=== PATIENT | female | born 1955 | race Caucasian/White ===

== ENCOUNTER 2019-10-19 07:23 | Outpatient (CLI) | payer BC, SELFPAY ==
--- NOTE | 2019-10-19 | DI.RAD_ITS ---
EXAM: XR LUMBAR SPINE COMPLETE CLINICAL HISTORY: LOW BACK PAIN ACUTE M54.5. TECHNIQUE: 2D digital imaging was performed. COMPARISON: No exams were available for comparison FINDINGS: BONES: No fracture or destructive lesion. Vertebral bodies are unremarkable. Degenerative changes of the facets are seen at L4-5 and L5-S1. DISKS: Intervertebral disc spaces are maintained. ALIGNMENT: Lumbar spinal alignment is within normal limits. SOFT TISSUE: Atherosclerosis of the abdominal aorta. IMPRESSION: Mild degenerative changes in the lumbar spine. DATA REPOSITORY: RADIATION DOSE DELIVERED:
== END 2019-10-19 07:43 ==
PROVIDERS: PCP Family Medicine; Visit Provider Family Medicine
DX: M54.5 Low back pain (principal); M47.817 Spondylosis without myelopathy or radiculopathy, lumbosacral region
CPT/HCPCS: 72110

== ENCOUNTER 2020-03-23 17:56 | Outpatient (REF) | payer BC, SELFPAY | END 2020-03-23 18:16 | LOC: NCHCN 17:56 | PROVIDERS: PCP Family Medicine; Visit Provider Nurse Practitioner Family | DX: R10.2 Pelvic and perineal pain (principal) | CPT/HCPCS: 87086 ==

== ENCOUNTER 2020-03-29 19:39 | Outpatient (REF) | payer BC, SELFPAY ==
--- NOTE | 2020-03-29 11:30 | PAPFT_PTH ---
PATIENT: Lisa Diaz LOC: [facility] U#:[id number] AGE/SX: 64/F ROOM: RE03/29/[address]: Luana Gates : 1955 BED: DIS: 03/29/2020 SPEC #: [id number] RECD: 03/30/20 12:53 STATUS: TIANNA REQ #: [id number] SHELLI: 03/29/20 11:[address]: Luana Gates DEPT: [facility] Cytology RECD BY: Flory Lema ENTERED: 03/30/20 12:53 SP TYPE: PAPFT OTHR DR: Amy Nicholson Tissues: 1 - CX/ENDOCX FOR PAP SMEARS Procedures: PAP THIN PREP/UVM Screening HPV DNA PROBE Comments: [id number]
[2020-03-29 20:25] LABS: HCT 41.6 % (36.0-46.0); HGB 13.9 g/dL (11.2-15.7); MCH 29.4 pg (27.0-33.0); MCHC 33.4 % (32.0-36.0); MCV 88.1 fL (80-95); MPV 9.7 fL (8.0-11.0); Platelet Count 315 10^3/uL (130-400); RBC 4.72 10^6/uL (3.93-5.22); RDW 12.2 % (11.7-14.6); RDW-SD 39.4 fL; WBC 6.84 10^3/uL (4.4-10.8)
[2020-03-29 21:18] LABS: ALT 21 U/L (14-59); AST 15 U/L (15-37); Albumin 4.1 g/dL (3.4-5.0); Alkaline Phosphatase 122 U/L (46-116); Anion Gap 10.1 mmol/L (3-11); BUN 11 mg/dL (7-18); Bilirubin, Total 0.4 mg/dL (0.2-1.0); CO2 29.9 mmol/L (21.0-32.0); Calcium 9.3 mg/dL (8.5-10.1); Calculated LDL 128 mg/dL (<100); Chloride 104 mmol/L (98-107); Cholesterol 219 mg/dL (<200); Glucose 88 mg/dL (74-106); HDL Cholesterol 62 mg/dL (40-60); Lipase 177 U/L (73-393); Potassium 4.2 mmol/L (3.5-5.1); Sodium 144 mmol/L (136-145); Total Protein 7.5 g/dL (6.4-8.2); Triglyceride 148 mg/dL (<150)
== END 2020-03-29 19:59 ==
LOC: NCHCN 19:39
PROVIDERS: PCP Family Medicine
DX: R10.9 Unspecified abdominal pain (principal); Z00.00 Encounter for general adult medical examination without abnormal findings; Z12.4 Encounter for screening for malignant neoplasm of cervix
CPT/HCPCS: 80053; 80061; 83690; 85027; 88142; 87624

== ENCOUNTER 2020-05-30 01:17 | Outpatient (CLI) | payer BC, SELFPAY ==
--- NOTE | 2020-05-30 | DI.US_ITS ---
EXAM: US AAA SCREENING CLINICAL HISTORY: ATHEROSCLEROSIS,I70.90,SCREENING FOR AAA TECHNIQUE: Ultrasound performed using standard protocol. COMPARISON: No exams were available for comparison FINDINGS: Limited abdominal ultrasound was performed to evaluate abdominal aorta. There is no abdominal aortic aneurysm. Maximum aortic diameter in the proximal portion the abdominal aorta is about 22 millimete rs. Right and left common iliac arteries are normal in appearance with diameter of right and left common iliac artery about 12 millimeters. IMPRESSION: No evidence of abdominal aortic aneurysm. DATA REPOSITORY:
== END 2020-05-30 01:37 ==
PROVIDERS: PCP Family Medicine; Visit Provider Family Medicine
DX: Z13.6 Encounter for screening for cardiovascular disorders (principal); I70.90 Unspecified atherosclerosis
CPT/HCPCS: 76706

== ENCOUNTER 2020-06-26 10:10 | Outpatient (CLI) | payer BC, SELFPAY ==
[2020-06-28 00:52] LABS: Patient Race White; SARS-CoV-2 RNA Undetected (Undetected); SARS-CoV-2 Specimen Source Nasal
== END 2020-06-26 10:30 ==
PROVIDERS: PCP Family Medicine; Visit Provider Family Medicine
DX: Z20.828 Contact with and (suspected) exposure to other viral communicable diseases (principal)
CPT/HCPCS: U0003

== ENCOUNTER 2020-07-10 00:44 | Outpatient (CLI) | payer BC, SELFPAY ==
--- NOTE | 2020-07-10 | DI.MAMMO_ITS ---
EXAM: MG MAMMO SCREENING CLINICAL HISTORY: SCREENING,Z12.31. TECHNIQUE: Bilateral full field digital CC and MLO mammographic images were obtained with 3D tomosyn thesis and utilizing computer aided detection (CAD). COMPARISON: Prior mammograms dating back to 2012, the most recent being May 1016. FINDINGS: There are no CAD designations. There are no new dominant masses nor malignant appearing microcalcification groups. Small nodular den sity in the upper quadrant of the left breast is unchanged from prior studies. This probably benign lymph node. There is no new architectural distortion nor skin thickening-retraction. IMPRESSION: No radiographic evidence of malignancy. Stable benign findings. BI-RADS Category 1 - Negative Breast Density - Category B - Scattered areas of fibroglandular density Breast density Category C or D implies that the patient has dense breast tissue. Dense breast tissue can make it harder to find cancer on a mammogram. Dense breast tissue is also associated with an incr eased risk of breast cancer. This information about the result of the mammogram report was provided to the patient to raise their awareness. Use this report when you speak with the patient about their risks for breast cancer, which includes their family history. At that time, you may recommend additional screening tests (Ultrasoun d or MRI) as these tests may add significant information. A negative radiographic report should not delay biopsy if a dominant or clinically suspicious mass is present. Up to ten percent of cancers are not identified on mammography. A negative report may reinforce clinical impression. Adenosis and dense breasts may obscure an underlying neoplasm. False positive reports average 6 to 10%. Patient will receive a letter notifying them of these results.
== END 2020-07-10 01:04 ==
PROVIDERS: PCP Family Medicine; Visit Provider Family Medicine
DX: Z12.31 Encounter for screening mammogram for malignant neoplasm of breast (principal)
CPT/HCPCS: 77063; 77067

== ENCOUNTER → 2022-06-20 02:13 | Outpatient (CLI) | payer MEDICARE, SELFPAY ==
--- NOTE | 2022-06-20 07:00 | DI.MRI_ITS ---
Exam(s) MR IAC BRAIN WO/W EXAM: MR IAC BRAIN WO/W CLINICAL HISTORY: assymmetric hearing, tinnitus,VERTIGO,H93.12,H90.3,H93.299 TECHNIQUE: MR examination of the brain was performed according to the usual protocol with additiona l multiplanar high-resolution pre and post contrast imaging the posterior fossa. Whole brain axial T 1 weighted imaging was also obtained post contrast. COMPARISON: No exams were available for comparison FINDINGS: The ventricular system is normal in appearance. There is no mass lesion or enhancing lesion in the b rain. No significant intracranial signal abnormality seen. A solitary left paez radiata white matter foc us of high signal is noted on T2 weighted imaging, not unusual in this age group. Diffusion-weighted imaging shows no diffusion restriction to suggest cerebral infarction. Susceptibility weighted imaging shows no evidence of intracranial hemorrhage. The orbital and temporal bone structures appear intact. The pituitary appears intact. There is normal flow void in the [id number] vasculature. Imaging of the posterior fossa region shows no abnormality of the cerebellum or andrzej. The internal a uditory canals and inner and middle ear structures appear normal. There is no mass lesion or enhanci ng lesion. IMPRESSION: Negative brain MRI with attention to the posterior fossa structures as described above. No mass lesi on or enhancing lesion. RADIATION DOSE DELIVERED: Total DLP
[2022-06-20 14:12] LABS: CREATININE 0.9 mg/dL (0.55-1.02); Estimated GFR 70.95 (mL/min/1.73m2)
[2022-06-20] MEDS: Gadoterate meglumine 20 ML VIAL 12 ML IVP (14:19)
[2022-06-20] MEDS: Normal Saline Flush 10 ML SYR IVP (14:19)
== END ==
PROVIDERS: PCP Family Medicine; Visit Provider Otolaryngology
DX: H90.3 Sensorineural hearing loss, bilateral (principal); H93.12 Tinnitus, left ear
CPT/HCPCS: 70553; 82565

== ENCOUNTER 2022-09-02 08:57 | Inpatient (IN) | payer MEDICARE, MEDICAID, SELFPAY ==
[2022-09-02] VITALS (30 sets, daily range): BP systolic 117–154; BP diastolic 57–79; PULSE 55–90; RESP 11–20; TEMP 36.4–36.6; O2SAT 94–99
--- NOTE | 2022-09-02 09:00 | RT.EKG_ITS ---
APPROVED REPORT Exam: Resting ECG Reason for Exam: fainted Patient Location: E HR:64 bpm ECG Measurements Heart Rate 64 AXIS SD 168 P -16 QRSd 94 QRS -42 QT 391 T 32 QTc 404 Conclusion Sinus rhythm...normal P axis, V-rate 60- 99 Left ventricular hypertrophy...multiple voltage criteria
--- NOTE | 2022-09-02 09:15 | RT.EKG_ITS ---
APPROVED REPORT Exam: Resting ECG Reason for Exam: fainted Patient Location: E HR:69 bpm ECG Measurements Heart Rate 69 AXIS TX 174 P -12 QRSd 97 QRS -43 QT 396 T 33 QTc 426 Conclusion Sinus rhythm...normal P axis, V-rate 60- 99 Left ventricular hypertrophy...multiple voltage criteria
--- NOTE | 2022-09-02 09:36 | W.ED.GENAD ---
Discharge Plan Discharge Details Chief Complaint: [id number] Admit Date/Time: 09/02/22 11:54 Admit Provider: Carmen Leyva Attending Provider: Carmen Leyva Primary Care Provider: Amy Nicholson ED Provider: Flory Pickens Discharge Data Discharge Date/Time-TO BE ENTERED AT DEPARTURE: 09/02/22 12:58 Medical Decision Making This 66-year-old female presents with 2 episodes of syncope last evening Laceration noted to left eyebrow Secondary to recurrent syncope and head injury, CT head and cervical spine was ordered which was negative per radiology interpretation my review Labs are stable Vitals are stable and patient is not orthostatic Of note, she is COVID-19 positive, I suspect this may be a contributing factor She does endorse alcohol use, she drinks approximately 2 drinks daily on weekends per patient She is fully alert and oriented, she is ambulatory steady gait, however given age and recurrent syncope I think she would benefit from admission to the hospital to exclude obvious dysrhythmia She is agreeable to plan at this time Return precautions reviewed and patient expressed understanding Medical Records Medical records reviewed: Yes I reviewed the patient's medical records. Lab Data Lab results reviewed: Yes I reviewed the patient's lab results. HPI General Date/Time Provider Initiated Documentation: 09/02/22 09:03. HPI Narrative: This 66-year-old female presents with report of 2 episodes of loss of consciousness starting at 7:00 last evening. She states that she had a typical day with her grandkids and when she arrived home took a shower and had a glass of wine which is her regular routine and felt dizzy and nauseous, she states that She remembers is waking up on the ground with pain to the left side of her face. She states she was too weak to get up when she tried she felt like she might pass out again so she crawled to the kitchen to get a glass of water. She states she then felt like she might have an additional episode and recalls only waking up on the ground and knocking her glass of water over. She placed herself in bed as she felt too dizzy to drive for evaluation and this morning has felt nauseous and weak all day. She denies any chest pain or shortness of breath. She denies any palpitations. She has mild headache. She denies any neck pain. She denies prior history of syncopal events in the past. She denies any recent flights, surgeries, long drives. She denies any calf pain or swelling. She denies any neurological changes at this time. She denies biting her tongue or urinary incontinence. She has no known history of seizures per patient. She denies any new medications. She only takes supplements per patient Related Data Home Medications Medication Instructions Recorded Confirmed Holy Basil PO DAILY 04/11/20 05/28/22 tumeric PO DAILY 04/11/20 05/28/22 multivitamin 1 tab PO DAILY 05/17/21 09/02/22 milk thistle 150 mg capsule 150 mg PO BID 05/28/22 09/02/22 Allergies Allergy/AdvReac Type Severity Reaction Status Date / Time No Known Allergies Allergy Unverified 09/02/22 09:28 General Stated Complaint: [id number] GERA: 3 Review of Systems All systems reviewed & are unremarkable except as noted in HPI and below PFSH All Active Problems Closed head injury (Acute) Eyebrow laceration (Acute) Alcohol abuse (Chronic) Discharge planning issues (Acute) DVT prophylaxis (Acute) COVID-19 (Acute) Syncopal episodes (Chronic) Tinnitus of left ear (Acute) Asymmetrical sensorineural hearing loss (Acute) Impairment of speech discrimination (Acute) Tinnitus, left (Acute) Asymmetrical sensorineural hearing loss (Acute) History of tonsillectomy and adenoidectomy (Acute) Hemorrhoids, internal (Acute) Tinnitus (Acute) Hearing loss in left ear (Acute) Osteoporosis of lumbar spine (Acute) Allergic rhinitis (Acute) Menopause (Acute) Prolapse of urethra (Acute) GERD (gastroesophageal reflux disease) (Chronic) Acute low back pain (Acute) Abdominal pain (Acute) Atherosclerosis (Acute) Pelvic pain (Acute) onset 09/2019 after accident while tubing. Sx worsening since. Suprapubic pain with position changes. Complete uterine prolapse with prolapse of anterior vaginal wall (Chronic) Encounter for screening for other viral diseases (Acute) Medical History Encounter for preventive care H/O screening mammography Irritable bowel syndrome (IBS) Surgical History Biopsy of breast Colonoscopy - IV Sedation Endoscopy (01/07/95) EGD H/O lumpectomy age 11, benign Rectocele, Paravaginal repair 1994 Family History Mother Heart disease Hypertension Stroke Father Personal history of malignant neoplasm neck cancer Paternal Uncle Stomach cancer Social History (Updated 09/02/22 @ 21:38 by Carmen Leyva MD) Smoking/Tobacco Use Status: Never Smoking risk assessment performed?: Yes Alcohol Intake: current Alcohol Intake frequency: 0-2 drinks per day Drug use: Socially Substance use type: marijuana Household members: none Number of Children: 1 number of grandchildren: 3 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 Pets and animals: No Sexually active: No What is your relationship status?: Panel score (0-1 are the most socially isolated patients): 0 Ramya/Yarsani: Quaker Additional Social history: Son-Jarod Sj. 04/2020, Grandchildren 03/09/2.5yo Female Reproductive History Menstrual Menopause type: natural Exam Const General: cooperative, comfortable and no acute distress Orientation: alert and oriented x3 HENMT Head: normal to inspection Head images: 1. laceration noted Mouth: oral mucosae normal Neck Other: No midline tenderness Resp Effort & Inspection: normal respiratory effort Auscultation: clear to auscultation bilaterally Cardio Rate: regular rate Rhythm: regular rhythm GI Inspection: normal to inspection Skin General skin exam: no rashes or lesions noted Neuro General: patient alert and patient oriented x3 Cranial Nerves: CN's II-XI intact bilaterally Cognition: normal cognition Speech: speech normal Extrem General: normal to inspection Course Vital Signs Vital signs: Vital Signs Temperature 36.6 C 09/02/22 09:04 Pulse 78 09/02/22 09:04 Respiratory Rate 18 09/02/22 09:04 Blood Pressure 133/76 09/02/22 09:04 Pulse Oximetry 98 09/02/22 09:04 Temperature 36.6 C 09/02/22 09:04 Temperature Source Temporal Artery Scan 09/02/22 09:04 Pulse 78 09/02/22 09:04 Respiratory Rate 18 09/02/22 09:14 Respiratory Effort Non-Labored 09/02/22 09:24 Respiratory Depth Normal 09/02/22 09:14 Respiratory Pattern Normal 09/02/22 09:14 Blood Pressure 133/76 09/02/22 09:04 Blood Pressure Position Sitting 09/02/22 09:04 Pulse Oximetry 98 09/02/22 09:04 Oxygen Delivery Method Room Air 09/02/22 09:04 Oxygen Flow Rate 0 09/02/22 09:04 PAWSS Have you Been Recently Intoxicated or Drunk Within the Last 30 days?: No Have you Ever Experienced Previous Episodes of Alcohol Withdrawal?: No Have you ever Experienced Withdrawal Seizures?: No Have you ever Experienced Delirium Tremens(DT)s?: No Have you ever undergone Alcohol Rehabilitation Treatment (i.e, inpt ot outpatient treatment programs)?: No Have you ever Experienced Blackouts?: No Have you ever Combined Alcohol with other Downers within the last 90 days?: No Have you ever Combined Alcohol with any other Substance of Abuse during the last 90 days?: No Result: 0
[2022-09-02 09:38] LABS: Abs Immature Grans 0.01 10^3/uL (0.0-0.06); Absolute Basophil Count 0.04 10^3/uL (0.0-0.2); Absolute Eosinophil Count 0.11 10^3/uL (0.0-0.7); Absolute Lymphocyte Count 1.94 10^3/uL (1.2-3.4); Absolute Monocyte Count 0.62 10^3/uL (0.1-0.8); Basophils % 0.5; Eosinophils % 1.4; HCT 38.9 % (36.0-46.0); HGB 13.3 g/dL (11.2-15.7); Immature Grans % 0.1; Lymphocytes % 23.9; MCH 29.1 pg (27.0-33.0); MCHC 34.2 % (32.0-36.0); MCV 85 fL (80-95); Monocytes % 7.6; Neutrophils % 66.5; Platelet Count 266 10^3/uL (130-400); RBC 4.57 10^6/uL (3.93-5.22); RDW 12.2 % (11.7-14.6); RDW-SD 37.7 fL; WBC 8.12 10^3/uL (4.4-10.8)
[2022-09-02] MEDS: Lactated Ringers 1,000 ML 1000 ML IV (09:52)
[2022-09-02 09:59] LABS: Bilirubin Negative (Negative); Blood Negative (Negative); Clarity Clear (Clear); Glucose Negative (Negative); Ketones Negative (Negative); Leukocyte Esterase Negative (Negative); Nitrite Negative (Negative); Specific Gravity 1.015 (1.005-1.025); Urobilinogen 0.2 EU/dL (Up TO 0.2)
[2022-09-02 10:03] LABS: ALT 22 U/L (14-59); AST 20 U/L (15-37); Alkaline Phosphatase 113 U/L (46-116); Anion Gap 6.6 mmol/L (3-11); BUN 15 mg/dL (7-18); Bilirubin, Total 0.5 mg/dL (0.2-1.0); CO2 30.4 mmol/L (21.0-32.0); CREATININE 0.8 mg/dL (0.55-1.02); Calcium 9.6 mg/dL (8.5-10.1); Chloride 105 mmol/L (98-107); Estimated GFR 81.72 (mL/min/1.73m2); Glucose 93 mg/dL (74-106); Magnesium 1.9 mg/dL (1.8-2.4); Potassium 3.7 mmol/L (3.5-5.1); Sodium 142 mmol/L (136-145); TSH (W/Ref FT4) 0.82 uIU/mL (0.36-3.74); Total Protein 7.2 g/dL (6.4-8.2); Troponin I < 50 ng/L (<or=60)
--- NOTE | 2022-09-02 10:08 | DI.CT_ITS ---
Exam(s) CT HEAD FACIAL WO EXAM: CT HEAD FACIAL WO CLINICAL HISTORY: syncope, HI, left orbital laceration. TECHNIQUE: Imaging Protocol: Axial computed tomography images with coronal and sagittal reformatted images were created and reviewed COMPARISON: CT HEAD WITHOUT CONTRAST from 06/12/2013 FINDINGS: CT Head: Ventricles and Extra axial spaces: Normal in size and morphology for the patient's age. Hemorrhage: None. Cerebral parenchyma: No evidence of an acute territorial infarct. Midline shift: None. Brainstem/Cerebellum: Normal. Calvarium: Normal. Visualized Paranasal sinuses/Mastoids: Clear. Soft Tissues: Unremarkable. CT Face: Facial Bones: No definite fracture is noted in facial bones. Sinuses and Mastoids: Unremarkable. Globes, extraocular muscles, optic nerves and retrobulbar fat: Normal. Upper aerodigestive tract: Normal. Mandible and bilateral temporomandibular joints: Normal. Soft tissues: Normal. IMPRESSION: 1. No acute intracranial process. 2. No acute facial fracture. 3. Findings were discussed with Flory Pickens at 10:34 a.m. on 06/02/2023. RADIATION DOSE DELIVERED: 1,211.19mGy.cm Total DLP DATA REPOSITORY: All CT scans at this facility are submitted to the National Radiology Data Registry (NRDR) Dose Index Registry (DIR) with the [employer] (A[employer]). RADIATION OPTIMIZATION: All CT scans at this facility use at least one of these dose optimization te chniques: automated exposure control; mA and/or kV adjustment per patient size (includes targeted exa ms where dose is matched to clinical indication); or iterative reconstruction.
[2022-09-02 10:54] LABS: Source Nasal/Nares
[2022-09-02 11:25] LABS: COVID-19 PCR POSITIVE (Negative)
--- NOTE | 2022-09-02 11:54 | W.PM.HP.N ---
Date of service: 09/02/22 Time of Service: 11:55 Assessment and Plan Assessment and plan (1) Syncopal episodes: Status: Chronic Assessment and plan: In setting of COVID-19 and alcohol abuse. Monitor on tele, obtain an echocardiogram. Not orthostatic, but I do still suspect a degree of autonomic dysfunction. Ambulate with assist only. (2) COVID-19: Status: Acute Assessment and plan: Possibly resulting in autonomic dysfunction. Will treat with remdesivir, vitamin c, d, zinc. Melatonin. Suspect nausea is due to COVID-19 as well - antiemetics, H2 brittany. Encourage IS/acapella. (3) Alcohol abuse: Status: Chronic Assessment and plan: MOnitor on CIWA with prn benzodiazepines and vitamins. Thiamine IV now. (4) Eyebrow laceration: Status: Acute Assessment and plan: sutured in ED. Anticipate will need to be removed in 5 days. (5) Closed head injury: Status: Acute Assessment and plan: Monitor for signs of encephalopathy/post-concussive syndrome (6) GERD (gastroesophageal reflux disease): Status: Chronic Assessment and plan: Start pepcid (7) DVT prophylaxis: Status: Acute Assessment and plan: Therapeutic lovenox (Dx of COVID-19) (8) Discharge planning issues: Status: Acute Assessment and plan: Full code Admit to medical surgical status History of Present Illness History of Present Illness Chief Complaint: recurrent sycnopal episodes Narrative: Ms Diaz is a 66 year female with PMHx of atherosclerosis (not otherwise specified) and GERD, as well as EtOH use only on weekends, who presented to [facility] ED today after two syncopal episodes yesterday. The patient was having her typical evening routine, per the ED provider, when she felt dizzy and nauseated and thought she might vomit, making her way to the bathroom, when the next thing she remembered was waking up on the floor with broken glasses, bleeding from her eyebrow. It is not known how long she was down, but when she came to it, she felt weak and was unable to get up, so she crawled to the sink in the kitchen, tried to get up there and, again, lost consciousness. When she came to it, she did not want to go for an evaluation to the ER, and she was able to get herself onto her couch. This morning, she still felt lightheaded and nauseated and did come to the ED. She was worried she had had a concussion. Here, her workup revealed that she was positive for COVID-19. She was not orthostatic. She had negative troponins, non-ischemic appearing EKGs x 2, and a CTA which was negative for a PE. The patient admits to drinking 7 oz or a half of a bottle of wine per day on weekends only, and she did have a glass of wine yesterday prior to this happening. She denied fevers, chills, endorsed a scratchy throat, denied palpitations, chest pain, endorsed chest tightness throughout her chest that was just starting, denies cough, denied diarrhea, denied abdominal pain. Her L eyebrow was sutured. Hospitalist admission was requested. Review of Systems All systems reviewed & are unremarkable except as noted in HPI and below PFSH All Active Problems Closed head injury (Acute) Eyebrow laceration (Acute) Alcohol abuse (Chronic) Discharge planning issues (Acute) DVT prophylaxis (Acute) COVID-19 (Acute) Syncopal episodes (Chronic) Tinnitus of left ear (Acute) Asymmetrical sensorineural hearing loss (Acute) Impairment of speech discrimination (Acute) Tinnitus, left (Acute) Asymmetrical sensorineural hearing loss (Acute) History of tonsillectomy and adenoidectomy (Acute) Hemorrhoids, internal (Acute) Tinnitus (Acute) Hearing loss in left ear (Acute) Osteoporosis of lumbar spine (Acute) Allergic rhinitis (Acute) Menopause (Acute) Prolapse of urethra (Acute) GERD (gastroesophageal reflux disease) (Chronic) Acute low back pain (Acute) Abdominal pain (Acute) Atherosclerosis (Acute) Pelvic pain (Acute) onset 09/2019 after accident while tubing. Sx worsening since. Suprapubic pain with position changes. Complete uterine prolapse with prolapse of anterior vaginal wall (Chronic) Encounter for screening for other viral diseases (Acute) Medical History Encounter for preventive care H/O screening mammography Irritable bowel syndrome (IBS) Surgical History Biopsy of breast Colonoscopy - IV Sedation Endoscopy (01/07/95) EGD H/O lumpectomy age 11, benign Rectocele, Paravaginal repair 1994 Family History Mother Heart disease Hypertension Stroke Father Personal history of malignant neoplasm neck cancer Paternal Uncle Stomach cancer Social History (Updated 09/02/22 @ 21:38 by Carmen Leyva MD) Smoking/Tobacco Use Status: Never Smoking risk assessment performed?: Yes Alcohol Intake: current Alcohol Intake frequency: 0-2 drinks per day Drug use: Socially Substance use type: marijuana Household members: none Number of Children: 1 number of grandchildren: 3 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 Pets and animals: No Sexually active: No What is your relationship status?: Panel score (0-1 are the most socially isolated patients): 0 Ramya/Mu-Ism: Sabianism Additional Social history: Son-Jarod Sj. 04/2020, Grandchildren 2.5yo Female Reproductive History Menstrual Menopause type: natural Meds Allergies and Home Medications Allergies Allergy/AdvReac Type Severity Reaction Status Date / Time No Known Allergies Allergy Unverified 09/02/22 09:28 Home Medications Medication Instructions Recorded Confirmed Type Holy Basil PO DAILY 04/11/20 05/28/22 History tumeric PO DAILY 04/11/20 05/28/22 History multivitamin 1 tab PO DAILY 05/17/21 09/02/22 History milk thistle 150 mg capsule 150 mg PO BID 05/28/22 09/02/22 History Exam Narrative Exam Narrative: General: Pleasant middle-aged female, on RA, appears tired, A&Ox3, NAD Neurological: A&Ox3, no focal deficits Psychiatric: Appropriate speech pattern/content Skin: Laceration L eyebrow sutured; no active bleeding. No bruises or rashes HEENT: L eyebrow sutured as above, mild erythema L face c/w abrasions, Normocephalic, EOMI, dry MM, clear oropharynx, no submandibular or cervical lymphadenopathy, no goiter or JVD Cardiovascular: RRR, no m/r/g Lungs: Crackles R base which disappear with deep breathing Gastrointestinal: soft, nontender, nondistended Genitourinary: deferred Extremities: no edema, clubbing, or cyanosis of BLEs, 1+ pedal pulses B, wearing a toe ring Results Imaging Additional studies: CT head/facial bones w/o contrast: 1. No acute intracranial process.? 2. No acute facial fracture. CTA chest: 1. No evidence of pulmonary embolism, thoracic aortic dissection or aneurysm.? 2. 3 mm right upper lobe pulmonary nodule.? For low risk patients, no routine follow-up is recommended.? For high risk patients (history of smoking or other risk factors), optional CT scan of the chest in 12 months may be obtained.? (Rebecca et al, 2017). EKG #1: HR 64, NSR, no acute ischemia, artifact in lead V6 EKG #2: unchanged except morphology of T wave in lead V6 is now visualized and is sinusoidal. Labs Result diagrams: 09/02/22 09:33 09/02/22 09:33 Labs: Laboratory Results - last 24 hr 09/02/22 09/02/22 09/02/22 09:33 09:33 09:47 WBC 8.12 RBC 4.57 Hgb 13.3 Hct 38.9 MCV 85 MCH 29.1 MCHC 34.2 RDW 12.2 Plt Count 266 MPV 9.0 Immature Gran % 0.1 Neutrophils % 66.5 Lymphocytes % 23.9 Monocytes % 7.6 Eosinophils % 1.4 Basophils % 0.5 Nucleated RBC % 0.0 Absolute Neutrophils 5.40 Absolute Lymphocytes 1.94 Absolute Monocytes 0.62 Absolute Eosinophils 0.11 Absolute Basophils 0.04 Sodium 142 Potassium 3.7 Chloride 105 Carbon Dioxide 30.4 Anion Gap 6.6 BUN 15 Creatinine 0.8 Est GFR (CKD-EPI 2020) 81.72 Glucose 93 Calcium 9.6 Magnesium 1.9 Total Bilirubin 0.5 AST 20 ALT 22 Alkaline Phosphatase 113 Troponin I < 50 Total Protein 7.2 Albumin 4.0 TSH 0.82 Urine Color Yellow Urine Clarity Clear Urine pH 7.0 Ur Specific [place] 1.015 Urine Protein Negative Urine Ketones Negative Urine Blood Negative Urine Nitrite Negative Urine Bilirubin Negative Urine Urobilinogen 0.2 Ur Leukocyte Esterase Negative Urine Glucose Negative COVID-19 Source SARS-CoV-2 (PCR) 09/02/22 10:46 WBC RBC Hgb Hct MCV MCH MCHC RDW Plt Count MPV Immature Gran % Neutrophils % Lymphocytes % Monocytes % Eosinophils % Basophils % Nucleated RBC % Absolute Neutrophils Absolute Lymphocytes Absolute Monocytes Absolute Eosinophils Absolute Basophils Sodium Potassium Chloride Carbon Dioxide Anion Gap BUN Creatinine Est GFR (CKD-EPI 2020) Glucose Calcium Magnesium Total Bilirubin AST ALT Alkaline Phosphatase Troponin I Total Protein Albumin TSH Urine Color Urine Clarity Urine pH Ur Specific [place] Urine Protein Urine Ketones Urine Blood Urine Nitrite Urine Bilirubin Urine Urobilinogen Ur Leukocyte Esterase Urine Glucose COVID-19 Source Nasal/Nares SARS-CoV-2 (PCR) POSITIVE A* Last Vital Signs Temp 36.6 C 09/02/22 09:04 Pulse 55 L 09/02/22 11:31 Resp 12 09/02/22 11:31 BP 122/58 L 09/02/22 11:31 Pulse Ox 97 09/02/22 11:31 PAWSS Have you Been Recently Intoxicated or Drunk Within the Last 30 days?: No Have you Ever Experienced Previous Episodes of Alcohol Withdrawal?: No Have you ever Experienced Withdrawal Seizures?: No Have you ever Experienced Delirium Tremens(DT)s?: No Have you ever undergone Alcohol Rehabilitation Treatment (i.e, inpt ot outpatient treatment programs)?: No Have you ever Experienced Blackouts?: No Have you ever Combined Alcohol with other Downers within the last 90 days?: No Have you ever Combined Alcohol with any other Substance of Abuse during the last 90 days?: No Result: 0 Time Spent Time spent with Patient: 40-54 minutes Time was spent: preparing to see the patient(eg.review tests), obtaining and/or reviewing separately otained hiistory, ordering medications,tests, procedures, referring, communicating with other health child care center assistant director, indepentently interpreting results, counseling the patient and care coordination
--- NOTE | 2022-09-02 12:15 | DI.CT_ITS ---
Exam(s) CT CHEST PE CTA EXAM: CT CHEST PE CTA CLINICAL HISTORY: syncope. TECHNIQUE: Imaging Protocol: Axial CT angiography was performed with multi-slice acquisition and mu lti-planar and/or 3D reconstructions. CONTRAST MATERIAL: Intravenous: Omnipaque 350 contrast volume:100 mL COMPARISON: CR LEFT RIBS TO INCLUDE CXR from 08/22/2017 FINDINGS: Tracheobronchial tree: Patent where visualized. Pulmonary parenchyma: No consolidation or dominant measurable mass. There is a 3 mm nodule in the lat eral aspect of the right upper lobe. Pulmonary Arteries: No evidence of filling defect to suggest pulmonary emboli. Mediastinum and Faith: No dominant adenopathy or fluid collection. The esophagus is unremarkable. Visualized thyroid gland: Unremarkable. Pleura: No effusion or pneumothorax. Heart: The heart is not dilated. No coronary artery calcifications are seen. No pericardial effusion. Aorta: Thoracic aorta non-dilated. No evidence of dissection. Mild atherosclerosis. Upper abdomen: Unremarkable. Soft tissues: Unremarkable. Bones: Within normal limits for the patient's age. IMPRESSION: 1. No evidence of pulmonary embolism, thoracic aortic dissection or aneurysm. 2. 3 mm right upper lobe pulmonary nodule. For low risk patients, no routine follow-up is recommende d. For high risk patients (history of smoking or other risk factors), optional CT scan of the chest in 12 months may be obtained. (Rebecca et al, 2017). 3. Findings were discussed with the emergency department at 12:59 p.m. on 09/02/2022. RADIATION DOSE DELIVERED: 350.82mGy.cm Total DLP DATA REPOSITORY: All CT scans at this facility are submitted to the National Radiology Data Registry (NRDR) Dose Index Registry (DIR) with the [employer] (ACR). RADIATION OPTIMIZATION: All CT scans at this facility use at least one of these dose optimization te chniques: automated exposure control; mA and/or kV adjustment per patient size (includes targeted exa ms where dose is matched to clinical indication); or iterative reconstruction.
[2022-09-02 12:43] LABS: Lab Add On Test DONE
[2022-09-02] MEDS: Omnipaque 350 MG/ML 500 ML BTL-Imaging package IJ (12:47)
[2022-09-02] MEDS: Normal Saline - Diluent 50 ML VIAL IJ (12:48)
[2022-09-02 12:56] LABS: Creatine Kinase 105 U/L (26-192)
[2022-09-02] MEDS: REMDESIVIR 200 MG in Normal Saline 250 ML 250 MG IVPB (12:56)
[2022-09-02 13:08] LABS: Troponin I < 50 ng/L (<or=60)
[2022-09-02] MEDS: Normal Saline Flush 10 ML SYR (14:28)
[2022-09-02] MEDS: Acetaminophen 325 MG TAB PO ×2 (14:33→20:34)
--- NOTE | 2022-09-02 15:04 | PHA.REVIEW2 ---
Pharmacy Admission Review - Admission Clinical Review No Known Allergies Allergy (Unverified 09/02/22 09:28) Resuscitation Status Full Code Height 5 ft 3 in Weight 64.864 kg - Renal Dosing Renal Dosing: BUN 15 mg/dL (7-18) 09/02/22 09:33 Creatinine 0.8 mg/dL (0.55-1.02) 09/02/22 09:33 Medications needing adjustments: Reviewed (Crcl ~50.8 mL/min current meds okay) - Anticoagulation Anticoagulation: Hgb 13.3 g/dL (11.2-15.7) 09/02/22 09:33 Hct 38.9 % (36.0-46.0) 09/02/22 09:33 Plt Count 266 10^3/uL (130-400) 09/02/22 09:33 Creatinine 0.8 mg/dL (0.55-1.02) 09/02/22 09:33 DVT Prophylaxis: Reviewed Medications: Enoxaparin - Opiate Usage Evaluate Pain Scale/Pains Meds: N/A - Relevant Labs Sodium 142 mmol/L (136-145) 09/02/22 09:33 Potassium 3.7 mmol/L (3.5-5.1) 09/02/22 09:33 Chloride 105 mmol/L (98-107) 09/02/22 09:33 Magnesium 1.9 mg/dL (1.8-2.4) 09/02/22 09:33 Electrolytes, C-Reactive P, ESR: Reviewed - DM Control DM Control: Glucose 93 mg/dL (74-106) 09/02/22 09:33 DM Control: Reviewed (No DM noted in pt's medical history) - Cardiac Review Cardiac Review: Troponin I < 50 ng/L (<or=60) 09/02/22 12:38 BP, HR, EF%: Reviewed (BP has been up and down some and HR low to normal) - Qtc Review QTc: Reviewed (QTc 404 and 426 on EKGs done today) - IV to PO Switch IV Medications: Reviewed - Home Meds Home Med List reviewed: Reviewed Relevent Home Meds Not ordered & why?: multivitamin - Current meds Current Medication Order Review: Reviewed - Comments Comments/Follow Ups: Watch BP, HR, labs and for med changes (possible enoxaparin dosage adjustments pending covid recommendations/if PE ruled out per provider, possible renal dose adjustments).
[2022-09-02] MEDS: THIAMINE 100 MG in Normal Saline 100 ML 200 MG IVPB (16:36)
[2022-09-02] MEDS: Ascorbic Acid 500 MG TAB 1000 MG PO (20:10)
[2022-09-02] MEDS: Melatonin 3 MG TAB PO (23:12)
[2022-09-02] MEDS: Famotidine 20 MG TAB PO (23:12)
[2022-09-03] VITALS (11 sets, daily range): BP systolic 112–148; BP diastolic 56–76; PULSE 63–97; RESP 16–20; TEMP 36.6–38; O2SAT 93–98
[2022-09-03 07:20] LABS: Abs Immature Grans 0.01 10^3/uL (0.0-0.06); Absolute Basophil Count 0.05 10^3/uL (0.0-0.2); Absolute Eosinophil Count 0.15 10^3/uL (0.0-0.7); Absolute Lymphocyte Count 0.55 10^3/uL (1.2-3.4); Absolute Monocyte Count 0.42 10^3/uL (0.1-0.8); Absolute Neutrophil Count 3.65 10^3/uL (1.2-6.7); Eosinophils % 3.1; HCT 39.2 % (36.0-46.0); HGB 13.3 g/dL (11.2-15.7); Immature Grans % 0.2; Lymphocytes % 11.4; MCH 29.3 pg (27.0-33.0); MCHC 33.9 % (32.0-36.0); MCV 86 fL (80-95); MPV 9.3 fL (8.0-11.0); Monocytes % 8.7; Neutrophils % 75.6; Platelet Count 205 10^3/uL (130-400); RBC 4.54 10^6/uL (3.93-5.22); RDW 12.1 % (11.7-14.6); RDW-SD 38.3 fL; WBC 4.83 10^3/uL (4.4-10.8)
[2022-09-03 07:36] LABS: Prothrombin Time 9.9 sec (9.3-11.0)
[2022-09-03 07:42] LABS: ALT 22 U/L (14-59); AST 20 U/L (15-37); Albumin 3.9 g/dL (3.4-5.0); Alkaline Phosphatase 113 U/L (46-116); Anion Gap 8.1 mmol/L (3-11); BUN 10 mg/dL (7-18); Bilirubin, Direct 0.1 mg/dL (0.0-0.2); Bilirubin, Total 0.4 mg/dL (0.2-1.0); C-Reactive Protein 0.17 mg/dL (0.0-0.3); CO2 25.9 mmol/L (21.0-32.0); CREATININE 0.8 mg/dL (0.55-1.02); Calcium 9.1 mg/dL (8.5-10.1); Chloride 108 mmol/L (98-107); Estimated GFR 81.72 (mL/min/1.73m2); Glucose 96 mg/dL (74-106); Magnesium 1.8 mg/dL (1.8-2.4); Potassium 4.1 mmol/L (3.5-5.1); Sodium 142 mmol/L (136-145); Total Protein 7.2 g/dL (6.4-8.2)
[2022-09-03] MEDS: Acetaminophen 325 MG TAB PO ×3 (07:57→18:21)
[2022-09-03] MEDS: Cholecalciferol (Vitamin D3) 1,000 UNIT TAB 2000 UNITS PO (07:58)
[2022-09-03] MEDS: Ascorbic Acid 500 MG TAB 1000 MG PO ×2 (07:58→21:02)
[2022-09-03 07:59] LABS: D-Dimer 244 ng/mlFEU (<500)
[2022-09-03] MEDS: Multivitamin TAB 1 TAB PO (08:00)
[2022-09-03] MEDS: Folic Acid 1 MG TAB PO (08:00)
[2022-09-03] MEDS: Thiamine 100 MG TAB PO (08:00)
[2022-09-03] MEDS: Zinc Sulfate 220 MG TAB PO (08:00)
[2022-09-03] MEDS: Normal Saline Flush 10 ML SYR IVP ×2 (08:00→11:30)
[2022-09-03 08:03] LABS: Procalcitonin < 0.1 ng/mL
[2022-09-03 08:04] LABS: Folate 19.1 ng/mL (8.6-20.0); Vitamin B12 639 pg/mL (193-986)
[2022-09-03 08:21] LABS: Ferritin 198 ng/mL (8-252)
--- NOTE | 2022-09-03 10:07 | PDOC.CMIN ---
- If Service Date Differs Date of service: 09/03/22 Time of Service: 10:07 Care Management Initial Assess REASON FOR HOSPITALIZATION:: syncope, Covid PAST MEDICAL HISTORY/PAST SURGICAL HISTORY:: All Active Problems . Closed head injury (Acute). Eyebrow laceration (Acute). Alcohol abuse (Chronic). Discharge planning issues (Acute). DVT prophylaxis (Acute). COVID-19 (Acute). Syncopal episodes (Chronic). Tinnitus of left ear (Acute). Asymmetrical sensorineural hearing loss (Acute). Impairment of speech discrimination (Acute). Tinnitus, left (Acute). Asymmetrical sensorineural hearing loss (Acute). History of tonsillectomy and adenoidectomy (Acute). Hemorrhoids, internal (Acute). Tinnitus (Acute). Hearing loss in left ear (Acute). Osteoporosis of lumbar spine (Acute). Allergic rhinitis (Acute). Menopause (Acute). Prolapse of urethra (Acute). GERD (gastroesophageal reflux disease) (Chronic). Acute low back pain (Acute). Abdominal pain (Acute). Atherosclerosis (Acute). Pelvic pain (Acute). onset 09/2019 after accident while tubing. Sx worsening since. Suprapubic pain with position changes. Complete uterine prolapse with prolapse of anterior vaginal wall (Chronic). Encounter for screening for other viral diseases (Acute). Medical History . Encounter for preventive care. H/O screening mammography. Irritable bowel syndrome (IBS). Surgical History . Biopsy of breast. Colonoscopy - IV Sedation. Endoscopy (01/07/95). EGD. H/O lumpectomy. age 11, benign. Rectocele, Paravaginal repair. 1994 PREVIOUS FUNCTIONAL STATUS/SOCIAL/FAMILY SUPPORTS:: Essence lives in [facility] CURRENT FUNCTIONAL STATUS:: NELLI unable to meet in person with Essence as she is on Covid isolation and attempts to reach her by phone were unsuccessful. Information was obtained from chart review and staff. ADVANCE DIRECTIVES:: none on file Has patient been provided with info about the portal/API?: Yes Did the patient sign up for the portal?: Yes (previously) CODE STATUS:: Full Code INSURANCE COVERAGE / FINANCIAL ISSUES:: [employer] Medicare Advantage PRIMARY CARE PHYSICIAN:: Amy Nicholson POTENTIAL DISCHARGE NEEDS:: follow up with PCP and plan of care PATIENT/FAMILY EDUCATION NEEDS:: Review of discharge instructions, activity, limitations, follow up plan, discuss [employer] Me [employer] TRANSPORTATION:: via private vehicle with friend/family PLAN:: Anticipate Essence will be discharged home with no new services. She will follow up with her PCP and plan of care and transport with friends/family. CM will support Essence and assess for discharge concerns.
[2022-09-03] MEDS: REMDESIVIR 100 MG in Normal Saline 250 ML 250 MG IVPB (11:30)
--- NOTE | 2022-09-03 14:25 | PT.INIE ---
Date of service: 09/03/22 Time of Service: 14:25 PT Notes Visit Reasons: Syncope,COVID-19 Physical Therapy Inpatient Initial Evaluation Date: 09/03/2022 Referring Doctor: Carmen Leyva MD PT Orders: PT CONSULT: Limited ability Precautions: Fall. Standard. Activity as tolerated. Patient Profile/Admitting Diagnosis: Lisa is a 66-year-old female who presented to the ED on 09/02/2021 due to 2 episodes of loss of consciousness at home, dizziness, nausea, left side pain, weakness, and mild headache. Patient is admitted to MedSurg unit for management of syncopal episode, COVID-19 infection, EtOH abuse, eyebrow laceration, closed head injury, and GERD. PMHX: All Active Problems? Closed head injury (Acute) Eyebrow laceration (Acute) Alcohol abuse (Chronic) Discharge planning issues (Acute) DVT prophylaxis (Acute) COVID-19 (Acute) Syncopal episodes (Chronic) Tinnitus of left ear (Acute) Asymmetrical sensorineural hearing loss (Acute) Impairment of speech discrimination (Acute) Tinnitus, left (Acute) Asymmetrical sensorineural hearing loss (Acute) History of tonsillectomy and adenoidectomy (Acute) Hemorrhoids, internal (Acute) Tinnitus (Acute) Hearing loss in left ear (Acute) Osteoporosis of lumbar spine (Acute) Allergic rhinitis (Acute) Menopause (Acute) Prolapse of urethra (Acute) GERD (gastroesophageal reflux disease) (Chronic) Acute low back pain (Acute) Abdominal pain (Acute) Atherosclerosis (Acute) Pelvic pain (Acute) onset 09/2019 after accident while tubing. Sx worsening since. Suprapubic pain with position changes.Complete uterine prolapse with prolapse of anterior vaginal wall (Chronic) Encounter for screening for other viral diseases (Acute) Medical History? Encounter for preventive care H/O screening mammography Irritable bowel syndrome (IBS) Surgical History? Biopsy of breast Colonoscopy - IV Sedation Endoscopy (01/07/95) EGDH/O lumpectomy age 11, benign Rectocele, Paravaginal repair 1994 Social History/Home Situation: Lives alone in a private home. Independent with all aspects of ADLs prior to admission. Equipment Owned/DME: None Subjective: Lisa feels that the fainting episode that she had was due to her COVID-19 infection. She denies dizziness, nausea, and headache for the session. She verbalizes that she does not feel the need for physical therapy as she has been moving independently inside her room without an assistive device. Agreeable to PT evaluation only. Continues to feel fatigued. Objective: General Observation: Supine in bed. Monitoring in place. Mental Status: Alert and oriented as to person, place, time, and purpose. Able to pay attention, focus, and respond appropriately. Pain: Denies Vital Signs: WNL as closely monitored via telemetry ROM: Right Upper Extremity: Shoulder Flexion WFL. Shoulder abduction WFL. Elbow flexion WFL. Wrist flexion WFL. Functional opening and closing of hand WFL. Left Upper Extremity: Shoulder Flexion WFL. Shoulder abduction WFL. Elbow flexion WFL. Wrist flexion WFL. Functional opening and closing of hand WFL. Right Lower Extremity: Hip flexion WFL. Hip abduction WFL. Knee flexion WFL. Ankle dorsiflexion WFL. Ankle plantarflexion WFL. Left Lower Extremity: Hip flexion WFL. Hip abduction WFL. Knee flexion WFL. Ankle dorsiflexion WFL. Ankle plantarflexion WFL. Strength: Right Upper Extremity: Shoulder flexors 4/5. Shoulder abductors 4/5. Elbow flexors 5/5. Elbow extensors 5/5. Hoist Mechanic strong. Left Upper Extremity: Shoulder flexors 4/5. Shoulder abductors 4/5. Elbow flexors 5/5. Elbow extensors 5/5. Hoist Mechanic strong. Right Lower Extremity: Hip flexors 4/5. Hip abductors 4/5. Knee flexors 5/5. Knee extensors 5/5. Ankle dorsiflexors 5/5. Ankle plantarflexors 5/5. Left Lower Extremity: Hip flexors 4/5. Hip abductors 4/5. Knee flexors 5/5. Knee extensors 5/5. Ankle dorsiflexors 5/5. Ankle plantarflexors 5/5. Bed Mobility/Transfers: Rolling independent Supine to sit independent Sit to supine independent Sit to stand independent Stand to sit independent Bed to reclining chair with independent Reclining chair to bed with independent Gait: Instructed patient with level surface ambulation of 90 feet requiring no assistance. Gait pattern unremarkable Balance: Static Sitting: Normal Dynamic Sitting: Normal Static Standing: Normal Dynamic Standing: Normal Special Tests: Mobility Limitations Standardized Measure [facility] AM-PAC 6 clicks Basic Mobility Inpatient Short Form: Raw Score: 24 CMS Score: 0% deficit Informed Consent/Education: Patient was instructed in purpose of PT consult. Agreeable to proceed with PT evalaution. Agrees that she does not need any services at this time as she has been moving almost at baseline except for the fatigue brought on by COVID-19 infection. Assessment: Patient is independent inside room for all transfers and ambulation task performance without the need for an assistive device. No skilled PT services needed at this time. Patient is assessed [place] a 77266 moderate complexity based on the following: History: 66-year-old female with past medical history as indicated above Examination: Demonstrable impairment in strength, balance, and mobility level with underlying impairments and functional limitations as exhibited above as well as deficit score of 0% utilizing the [facility] Mobility Inpatient Short Form Presentation: Stable Decision Makin complexity Goals: N/A. PT evaluation only. Plan of Care/Treatment Plan: N/A. PT evaluation only. DISCHARGE RECOMMENDATIONS: [X] Home with no services. [] Home with services [specify] [] Home with outpatient PT [] [] SNF for continued rehabilitation [] [] [facility] Care [] [] SNF versus LTC based on ability to participate and progress [] TREATMENT CODE/TIME: 9716 2 x 22 minutes beginning at 14:25 PM. Thank you for the opportunity to participate in the care of this patient. Selena Mansfield PT, DPT, CLT [facility] [place], [place]
--- NOTE | 2022-09-03 16:30 | W.PM.PROGNOT ---
Date of Service Date of service: 09/03/22 Time of Service: 16:30 Assessment and Plan Assessment and plan (1) Syncopal episodes: Status: Chronic Assessment and plan: no arrhythmias overnight, has been NSR w/ stable BP. She was asking about returning home. I told her that I did not have her echo back yet and she just got her 2nd dose of Remdesivir today. I think given how fatigued she has been and given her recent COVID infection I am encouraging her to stay overnight, complete her 3rd dose of Remdesivir tomorrow and get her echo results back before discharge. If no arrhythmias tonight and BP is ok and not orthostatic then she can return home tomorrow after her Remdesivir (2) COVID-19: Status: Acute Assessment and plan: as above (3) Closed head injury: Status: Acute (4) Eyebrow laceration: Status: Acute Assessment and plan: s/p primary closure (5) Alcohol abuse: Status: Chronic Assessment and plan: not exhibiting withdrawal symptoms. CIWA score is 0 to 3. (6) DVT prophylaxis: Status: Acute Assessment and plan: currently on full dose lovenox however as she has no oxygen requirements and actually was hospitalized for other reasons than COVID -19, i.e. syncope; she can go on prophylactic dosing of lovenox 40 mg SC daily per CDC guidelines (7) Discharge planning issues: Status: Acute Assessment and plan: will dc in a.m. after her Remdesivir dose Subjective Subjective Interval history since last seen: Patient states that she is feeling better. No further nausea this afternoon. No vomiting or abdominal pain. Still w/ some loose BM this morning. No dyspnea or chest pain/pressure. Still gets lightheaded if she gets up quickly although she has been ambulating about the room. She is on day #2 of Remdesivir. She is not having any hypoxemia or respiratory symptoms. Exam Narrative Exam Narrative: Alert and oriented x 3, no distress, lying in bed HEENT: closed laceration over left eyebrow Lungs: clear (as best as I can hear over the PAPR) Heart: RRR, no murmur or rub Abdomen: benign, soft, nontender Objective Last Vital Signs Temp 37.6 C H 09/03/22 13:56 Pulse 83 09/03/22 15:00 Resp 18 09/03/22 13:56 BP 143/75 H 09/03/22 13:56 Pulse Ox 93 09/03/22 13:56 Laboratory Results - last 24 hr 09/03/22 09/03/22 09/03/22 06:20 06:20 06:20 WBC 4.83 RBC 4.54 Hgb 13.3 Hct 39.2 MCV 86 MCH 29.3 MCHC 33.9 RDW 12.1 Plt Count 205 MPV 9.3 Immature Gran % 0.2 Neutrophils % 75.6 Lymphocytes % 11.4 Monocytes % 8.7 Eosinophils % 3.1 Basophils % 1.0 Nucleated RBC % 0.0 Absolute Neutrophils 3.65 Absolute Lymphocytes 0.55 L Absolute Monocytes 0.42 Absolute Eosinophils 0.15 Absolute Basophils 0.05 PT INR D-Dimer Sodium 142 Potassium 4.1 Chloride 108 H Carbon Dioxide 25.9 Anion Gap 8.1 BUN 10 Creatinine 0.8 Est GFR (CKD-EPI 2020) 81.72 Glucose 96 Calcium 9.1 Magnesium 1.8 Ferritin 198 Total Bilirubin 0.4 Conjugated Bilirubin 0.1 AST 20 ALT 22 Alkaline Phosphatase 113 C-Reactive Protein 0.17 Total Protein 7.2 Albumin 3.9 Vitamin B12 25-OH Vitamin D Total 28.0 L Folate Procalcitonin 09/03/22 09/03/22 09/03/22 06:20 06:20 06:20 WBC RBC Hgb Hct MCV MCH MCHC RDW Plt Count MPV Immature Gran % Neutrophils % Lymphocytes % Monocytes % Eosinophils % Basophils % Nucleated RBC % Absolute Neutrophils Absolute Lymphocytes Absolute Monocytes Absolute Eosinophils Absolute Basophils PT 9.9 INR 1.0 D-Dimer 244 Sodium Potassium Chloride Carbon Dioxide Anion Gap BUN Creatinine Est GFR (CKD-EPI 2020) Glucose Calcium Magnesium Ferritin Total Bilirubin Conjugated Bilirubin AST ALT Alkaline Phosphatase C-Reactive Protein Total Protein Albumin Vitamin B12 639 25-OH Vitamin D Total Folate 19.1 Procalcitonin < 0.1 PAWSS Have you Been Recently Intoxicated or Drunk Within the Last 30 days?: No Have you Ever Experienced Previous Episodes of Alcohol Withdrawal?: No Have you ever Experienced Withdrawal Seizures?: No Have you ever Experienced Delirium Tremens(DT)s?: No Have you ever undergone Alcohol Rehabilitation Treatment (i.e, inpt ot outpatient treatment programs)?: No Have you ever Experienced Blackouts?: No Have you ever Combined Alcohol with other Downers within the last 90 days?: No Have you ever Combined Alcohol with any other Substance of Abuse during the last 90 days?: No Result: 0 Time Spent with Patient Time Spent with Patient: <25 minutes Time was spent: preparing to see the patient(eg.review tests), obtaining and/or reviewing separately otained hiistory, ordering medications,tests, procedures, indepentently interpreting results, counseling the patient and care coordination
[2022-09-03] MEDS: Melatonin 3 MG TAB PO (22:56)
[2022-09-03] MEDS: Ibuprofen 400 MG TAB PO (22:57)
[2022-09-03] MEDS: Famotidine 20 MG TAB PO (22:57)
[2022-09-03] MEDS: Calcium Carbonate *TUMS* 500 MG CHEW PO (22:57)
[2022-09-04] VITALS (7 sets, daily range): BP systolic 114–136; BP diastolic 65–80; PULSE 67–88; RESP 16–19; TEMP 37.4–37.6; O2SAT 96–98
[2022-09-04] MEDS: Folic Acid 1 MG TAB PO (09:21)
[2022-09-04] MEDS: Zinc Sulfate 220 MG TAB PO (09:21)
[2022-09-04] MEDS: Cholecalciferol (Vitamin D3) 1,000 UNIT TAB 2000 UNITS PO (09:21)
[2022-09-04] MEDS: Ascorbic Acid 500 MG TAB 1000 MG PO (09:22)
[2022-09-04] MEDS: Multivitamin TAB 1 TAB PO (09:22)
[2022-09-04] MEDS: REMDESIVIR 100 MG in Normal Saline 250 ML 250 MG IVPB (09:24)
[2022-09-04] MEDS: Thiamine 100 MG TAB PO (09:25)
[2022-09-04] MEDS: Acetaminophen 325 MG TAB PO (09:56)
--- NOTE | 2022-09-04 10:09 | PDOC.CMPRO ---
- If Service Date Differs Date of service: 09/04/22 Time of Service: 10:09 Care Management Progress Note S/O: CM unable to meet in person with Essence as she is on Covid isolation. A: 66 year old female admitted to [facility] on 09/02/22 for Syncopal episodes, Covid-19 P: Anticipate Essence will be discharged home with no new services. She will follow up with her PCP and plan of care and transport with friends/family. CM will support Essence and assess for discharge concerns.
--- NOTE | 2022-09-04 13:38 | DSE_ITS ---
Date of service: 09/04/22 Time of Service: 13:39 DS: Diagnosis Discharge Diagnosis (1) Syncopal episodes: Status: Chronic (2) COVID-19: Status: Acute (3) Closed head injury: Status: Acute (4) Eyebrow laceration: Status: Acute (5) Alcohol abuse: Status: Chronic (6) DVT prophylaxis: Status: Acute (7) Discharge planning issues: Status: Acute (8) Lung nodule: Status: Acute Discharge Plan Disposition Patient Disposition: Home Condition: Good Discharge Details Reason For Visit: Syncope,COVID-19 Admit Date/Time: 09/02/22 11:54 Admit Provider: Carmen Leyva Attending Provider: Carmen Leyva Primary Care Provider: Amy Nicholson [facility] Course Hospital Course: 66-year-old female with history of atherosclerosis, GERD, history of chronic alcohol use who present emergency department after 2 syncopal spells on the day prior to admission. Patient had symptoms of dizziness and nausea and felt like she would vomit but did not have emesis. This occurred on her way to the bathroom. Next thing she knew she woke up on the floor with broken eyeglasses. She had bleeding from her left eyebrow. She did not know how long she had been down but had generalized weakness difficulty ambulating so she called the sink try to get up but then lost consciousness again. When she came to she did not want to go to the emergency department so she managed to get herself onto the couch and laid there until finally she called EMS and was brought to the emergency department. Evaluation emergency department showed nasal PCR was positive for COVID-19. Cardiac troponins were negative her EKG x2 showed no ischemic changes. CT of the chest showed no pulmonary embolism. Patient admits that she been drinking 7 ounces or so wine per day on the weekends prior to the syncopal spells. Laboratory evaluation includes CBC was normal, CMP was unremarkable and showed normal renal and liver function tests and normal electrolytes. Troponin I was normal x2 sets. Vitamin D level was found to be low with a 25-hydroxy vitamin D level at 28 ng/mL. Procalcitonin was normal at less than 0.1 folate level was normal at 19.1 TSH was normal at 0.82. Imaging included a chest CT scan that showed no evidence of pulmonary embolism and no evidence of thoracic aortic aneurysm or dissection she has a 3 mm right upper lobe pulmonary nodule. Recommend she have a follow-up CT scan in 6 to 12 months. Cardiac monitoring throughout her hospital stay showed sinus rhythm. She had no heart block and no tachyarrhythmias or bradycardia arrhythmias. Echocardiogram was performed on 09/03/2022 and although it was read as technically difficult study quality was satisfactory and was completed. She had normal left ventricular right ventricular size and function with an estimated LVEF of 50 to 55% with no wall motion abnormalities and no significant valvular abnormalities. Left and right atrium were normal in size no evidence for patent foramen ovale. Patient was with Remdesivir x3 days. She was started on 200 mg on the day of a dmission and then received 100 mg IV daily for 2 more days. She was discharged and improved condition. She had no further orthostasis or dizziness or syncopal spells and did not go through any alcohol withdrawal although she was monitored on the CIWA protocol. Her laceration over her left eyebrow was sutured in the emergency department and she did receive a Tdap vaccine in the emergency departm ent. Suture should be removed in 7 to 10 days. Patient was given guidance from CDC regarding isolation postrecovery from COVID- 19. She should remain isolated at home until September 08 and she should continue to wear a mask until September 12, 2022. During her hospital stay she had no hypoxemia and no respiratory symptoms although she did have an intermittent low- grade fever. Home Meds and New Rx's Prescriptions: New folic acid 1 mg Tablet 1 mg PO QAM 30 Days Qty: 30 0RF cholecalciferol (vitamin D3) 25 mcg (1,000 unit) Tablet 2,000 units PO DAILY Qty: 30 0RF zinc sulfate [Zinc-220] 50 mg zinc (220 mg) Capsule 220 mg PO DAILY Qty: 10 0RF thiamine mononitrate (vit B1) [Vitamin B-1 (mononitrate)] 100 mg Tablet 100 mg PO QAM Qty: 30 0RF ascorbic acid (vitamin C) [Vitamin C] 500 mg Tablet 1,000 mg PO BID 10 Days Qty: 40 0RF Continued tumeric PO DAILY Holy Basil PO DAILY multivitamin Tablet 1 tab PO DAILY milk thistle 150 mg capsule 150 mg PO BID Rx Instructions: give with meal/snack Discharge Instructions Instructions: Syncope (DC), COVID-19: Slow the Coronavirus Spread (DC), Face Coverings (Masks) and COVID-19 (DC) Additional Instructions: You should remain home until 09/08/22 after this you may leave your home but should wear a high quality filtered mask when you leave your home. Per CDC guidelines (https://www.cdc.gov/coronavirus/2019-ncov/your-health/isolation.html) you need to wear a mask until 09/12/22. You have a vitamin D deficiency and should remain on vitamin D supplementation. As part of your treatment for COVID 10 you were treated for 3 days w/ an antiviral Remdesivir and you were put on zinc, vitamin C and vitamin D. Because of your alcohol consumption you have been put on thiamine and folic acid. continue the vitamin C and zinc for 10 days. continue the vitamin D until your PCP has an opportunity to retest your vitamin D level. There is no need to continue testing for COVID 19 as your test may remain positive for several days and would not change how to handle this. If you develope recurrent fevers, chills, shortness of breath, chest pains or fainting spells, seek immediate medical attention. Your CT scan of your chest showed no pulmonary embolism and no aortic aneurysm. However there is a small 3 mm lung nodule in the right upper lobe. It is recommended that you have a follow-up CT scan in 6 months. You should discuss these results with your PCP and make arrangements for follow-up. You should make follow-up arrangements to have your sutures removed from your face and 7 days from discharge from the hospital. Referrals: Amy Nicholson [Primary Care Provider] - Activity:: Activity as Tolerated Equipment/Supplies:: No Equipment Needed Diet:: Normal Diet Discharge Orders Discharge Orders: Discharge Order (Routine); Ordered 09/04/22 Ordered By: Geraldo Nieves Other Ambulatory Orders: Cardiac Event Recorder (Routine) Timeframe: 1 Day Facility: [facility] - Location: Respiratory Therapy Ordered By: Geraldo Nieves DS: Summary Time Spent with Patient providing and/or coordinating discharge services: Less than 30 minutes Status at Discharge Functional status at discharge: independent ambulation Overall status at discharge: patient is progressing back to baseline Mental Status: mental status grossly normal Speech and Movement: speech and movement normal Mood: congruent mood Affect: normal affect Exam Narrative Exam Narrative: Patient was sitting up in bed alert oriented person place time circumstance no complaints of dizziness or dyspnea or chest discomfort. I reviewed the results of her echocardiogram with her which showed no significant abnormalities it was normal with normal LV and RV size and function and no valvulopathy. Lungs are clear to auscultation Heart is regular rate and rhythm without murmur rub or gallop Abdomen soft nontender nondistended Extremities without peripheral cyanosis or edema Psych Mental Status: mental status grossly normal Speech and Movement: speech and movement normal Mood: congruent mood Affect: normal affect DS: Data Vitals/I&O Vitals and I&O: Vital Signs Temperature 37.4 C 09/04/22 12:04 Temperature Source Tympanic 09/04/22 12:04 Pulse 88 09/04/22 13:32 Pulse Rhythm Regular 09/04/22 10:36 Pulse 57 L 09/02/22 11:31 Respiratory Rate 19 09/04/22 12:04 Respiratory Effort Non-Labored 09/04/22 10:36 Respiratory Depth Normal 09/04/22 10:36 Respiratory Pattern Normal 09/04/22 10:36 Blood Pressure 118/76 09/04/22 12:04 Blood Pressure Mean 74 09/02/22 11:31 Blood Pressure Position Sitting 09/02/22 09:04 Pulse Oximetry 98 09/04/22 12:04 Oxygen Delivery Method Room Air 09/04/22 12:04 Oxygen Flow Rate 0 09/04/22 12:04 Pain Level 0 09/04/22 12:04 Comment 09/02/22 13:15 Intake & Output 09/03/22 09/04/22 09/04/22 23:59 11:59 23:59 Intake Total 490 / 730 250 / 250 Output Total 500 / 2300 Balance -10 / 1570 250 / 250 Weight 62.4 kg Intake: IV 250 / 250 250 / 250 Oral 240 / 480 Output: Urine 500 / 2300 Other: Urine Color Yellow Urine Appearance Clear Clear Urine Odor Normal Voiding Methods Toilet Data Completed and Pending Pending studies at discharge: None PFSH All Active Problems (Updated 09/04/22 @ 13:43 by Geraldo Nieves MD) Lung nodule (Acute) Closed head injury (Acute) Eyebrow laceration (Acute) Alcohol abuse (Chronic) Discharge planning issues (Acute) DVT prophylaxis (Acute) COVID-19 (Acute) Syncopal episodes (Chronic) Tinnitus of left ear (Acute) Asymmetrical sensorineural hearing loss (Acute) Impairment of speech discrimination (Acute) Tinnitus, left (Acute) Asymmetrical sensorineural hearing loss (Acute) History of tonsillectomy and adenoidectomy (Acute) Hemorrhoids, internal (Acute) Tinnitus (Acute) Hearing loss in left ear (Acute) Osteoporosis of lumbar spine (Acute) Allergic rhinitis (Acute) Menopause (Acute) Prolapse of urethra (Acute) GERD (gastroesophageal reflux disease) (Chronic) Acute low back pain (Acute) Abdominal pain (Acute) Atherosclerosis (Acute) Pelvic pain (Acute) onset 09/2019 after accident while tubing. Sx worsening since. Suprapubic pain with position changes. Complete uterine prolapse with prolapse of anterior vaginal wall (Chronic) Encounter for screening for other viral diseases (Acute) Medical History Encounter for preventive care H/O screening mammography Irritable bowel syndrome (IBS) Surgical History Biopsy of breast Colonoscopy - IV Sedation Endoscopy (01/07/95) EGD H/O lumpectomy age 11, benign Rectocele, Paravaginal repair 1994 Family History Mother Heart disease Hypertension Stroke Father Personal history of malignant neoplasm neck cancer Paternal Uncle Stomach cancer Social History Smoking/Tobacco Use Status: Never Smoking risk assessment performed?: Yes Alcohol Intake: current Alcohol Intake frequency: 0-2 drinks per day Drug use: Socially Substance use type: marijuana Household members: none Number of Children: 1 number of grandchildren: 3 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 Pets and animals: No Sexually active: No What is your relationship status?: Panel score (0-1 are the most socially isolated patients): 0 Ramya/Latter Day: Buddhism Additional Social history: Son-Jarod Gustafson. 04/2020, Grandchildren 03/09/2.5yo Female Reproductive History Menstrual Menopause type: natural Time Spent with Patient Time Spent with Patient: <45 minutes Time was spent: preparing to see the patient(eg.review tests), ordering medications,tests, procedures, counseling the patient and care coordination
--- NOTE | 2022-09-04 14:35 | PDOC.CMDIS ---
- If Service Date Differs Date of service: 09/04/22 Time of Service: 14:35 LACE Index Scoring Tool - Questions: Length of Stay (in days): 2 Acuity (Admit via E.D.?): Yes E.D. Visits: 1 - Answers: Total Score: 6 Risk of Readmission: Low Risk Care Management Discharge Reason for Hospitalization: syncope, Covid Discharge Plan: Lisa is discharged home via private vehicle with family. Event monitor is ordered prior to discharge. Essence will follow up with community providers and discharge plan of care as prescribed. New RX's are printed. No services are ordered. Follow up appointment with primary care on 09/18/22, as scheduled. Patient/Family Education Needs: Review discharge instructions, limitations, medications and plan to have sutures removed in 7 days. Discuss ask me three and goals of self care.
== END 2022-09-04 15:21 | disposition home or self-care (01) | DRG 913 ==
LOC: ER 12:32 → MS 09-03 09:19
PROVIDERS: Admitting Provider Internal Medicine; Emergency Provider Physician Assistant; PCP Family Medicine; Visit Provider Internal Medicine
DX: S09.90XA Unspecified injury of head, initial encounter (principal); U07.1 COVID-19; R55 Syncope and collapse; F10.10 Alcohol abuse, uncomplicated; S01.112A Laceration without foreign body of left eyelid and periocular area, initial encounter; K21.9 Gastro-esophageal reflux disease without esophagitis; R91.1 Solitary pulmonary nodule; R53.1 Weakness; W19.XXXA Unspecified fall, initial encounter; K64.8 Other hemorrhoids; M81.0 Age-related osteoporosis without current pathological fracture; I70.90 Unspecified atherosclerosis; R50.9 Fever, unspecified; F12.90 Cannabis use, unspecified, uncomplicated
CPT/HCPCS: 36415; 71275; 80048; 80053; 80076; 82306; 82550; 84145; 87635; 90471; 93005; 93270; 96360; 97162; 99285; J1650; 70450; 70486; 81003; 82607; 82728; 82746; 83735; 84443; 84484; 85025; 85379; 85610; 86140; 93010; 93306; 99223; 99231; 99239; J0248

== ENCOUNTER 2022-10-08 08:17 | Outpatient (CLI) | payer MEDICARE, MEDICAID, SELFPAY ==
--- NOTE | 2022-10-08 08:41 | W.CARDEVENT ---
Date of service: 10/08/22 Time of Service: 08:42 Cardiac Event Recorder Referring Provider:: Geraldo Nieves Indications:: Syncope Cardiac Event Note: This is a 30-day cardiac event monitor rhythm throughout was sinus with an average heart rate of 73. Minimum was 57, maximum 115 there was no atrial fibrillation, no SVT, no high-grade AV block, no pauses greater than 3 seconds there was one 4 beat run of nonsustained ventricular tachycardia There were no reported patient symptoms
== END 2022-10-08 08:18 | disposition home or self-care (01) ==
LOC: CARDOPNVT 08:17
PROVIDERS: PCP Family Medicine; Visit Provider Internal Medicine Cardiovascular Disease
DX: R55 Syncope and collapse (principal); I49.3 Ventricular premature depolarization
CPT/HCPCS: 93272

== ENCOUNTER 2022-11-25 00:46 | Outpatient (CLI) | payer MEDICARE, MEDICAID, SELFPAY ==
--- NOTE | 2022-11-25 11:05 | DI.CT_ITS ---
Exam(s) CT CHEST WO EXAM: CT CHEST WO CLINICAL HISTORY: NODULE LUNG R91.1. TECHNIQUE: Imaging protocol: Axial computed tomography images were obtained and coronal and sagittal reformatted images were created and reviewed. COMPARISON: CT CT CHEST PE CTA from 09/02/2022 FINDINGS: Tracheobronchial tree: Patent where visualized. Pulmonary parenchyma: No consolidation or dominant measurable mass. There is a stable 3 mm nodule in the periphery of the left lower lobe. There is a stable 3 mm nodule in the periphery of the right up per lobe. There are no new pulmonary nodules. Mediastinum and Faith: No dominant adenopathy or fluid collection. The esophagus is unremarkable. Thyroid gland: Unremarkable. Pleura: No effusion or pneumothorax. Heart: The heart is not dilated. Mild coronary artery calcification is present. No pericardial effus ion. Aorta: Thoracic aorta non-dilated. Atherosclerosis is present. Upper abdomen: Unremarkable. Lymph nodes: Within normal limits. Soft tissues: Unremarkable. Bones:Within normal limits for the patient's age. IMPRESSION: Stable pulmonary nodules. Nodules less than 6 mm do not require routine follow-up in all patients. For low risk patients, no routine follow-up is required. For high risk patients (history of smoking or other risk factors), optional 12 month follow-up CT scan may be obtained. (Rebecca et al, 2017). RADIATION DOSE DELIVERED: 446.73mGy.cm Total DLP 446.73mGy.cm Total DLP DATA REPOSITORY: All CT scans at this facility are submitted to the National Radiology Data Registry (NRDR) Dose Index Registry (DIR) with the [employer] (ACR). RADIATION OPTIMIZATION: All CT scans at this facility use at least one of these dose optimization te chniques: automated exposure control; mA and/or kV adjustment per patient size (includes targeted exa ms where dose is matched to clinical indication); or iterative reconstruction.
== END 2022-11-25 01:06 ==
PROVIDERS: PCP Family Medicine; Visit Provider Family Medicine
DX: R91.1 Solitary pulmonary nodule (principal)
CPT/HCPCS: 71250

== ENCOUNTER 2022-12-16 13:01 | Outpatient (REF) | payer MEDICARE, MEDICAID, SELFPAY ==
[2022-12-16 16:03] LABS: Calculated LDL 146 mg/dL (<100); Cholesterol 252 mg/dL (<200); HDL Cholesterol 72 mg/dL (40-60); Triglyceride 171 mg/dL (<150)
== END 2022-12-16 13:02 | disposition home or self-care (01) ==
LOC: NCHCN 13:01
PROVIDERS: PCP Family Medicine; Visit Provider Family Medicine
DX: E78.89 Other lipoprotein metabolism disorders (principal); Z00.00 Encounter for general adult medical examination without abnormal findings
CPT/HCPCS: 80061

== ENCOUNTER → 2023-05-08 13:46 | Outpatient (BNVA) | payer MEDICARE, MEDICAID, SELFPAY | PROVIDERS: PCP Family Medicine; Referring Provider Family Medicine; Visit Provider Physical Therapy Assistant | DX: Z12.11 Encounter for screening for malignant neoplasm of colon (principal) ==

== ENCOUNTER 2023-05-15 01:27 | Outpatient (CLI) | payer MEDICARE, MEDICAID, SELFPAY ==
[2023-05-15] MEDS: Inhaler, Assist Device 1 EACH MC (11:30)
[2023-05-15] MEDS: Levalbuterol HFA 15 GM INH 4 PUFF IH (11:30)
--- NOTE | 2023-05-16 15:50 | W.PFT ---
Date of service: 05/15/23 Time of Service: 10:06 Pulmonary Function Test Result Indications: Nocturnal Cough Interpretation Spirometry: There is no airflow limitation. No significant bronchodilator response. Lung Volumes: There is hyperinflation. Diffusion Capacity: Normal diffusion Airway Pressure: Normal airways resistance Impression Normal pulmonary function, possibly with hyperinflation. Clinical Correlation therefore is recommended.
== END 2023-05-15 01:28 | disposition home or self-care (01) ==
LOC: RT 01:27
PROVIDERS: PCP Family Medicine; Visit Provider Family Medicine
DX: R06.2 Wheezing (principal); R05.9 Cough, unspecified
CPT/HCPCS: 94060; 94726; 94729

== ENCOUNTER → 2023-07-07 02:49 | Outpatient (CLI) | payer MEDICARE, MEDICAID, SELFPAY ==
--- NOTE | 2023-07-07 | DI.MAMMO_ITS ---
Exam(s) MAMMO SCREENING EXAM: MAMMO SCREENING CLINICAL HISTORY: SCREENING, Z12.31. TECHNIQUE: Bilateral full field digital CC and MLO mammographic images were obtained with 3D tomosyn thesis and utilizing computer aided detection (CAD). COMPARISON: Prior mammograms were reviewed. FINDINGS: There has been no significant change in the appearance and distribution of the fibroglandular tissue. No new right breast findings. Left breast nodules unchanged from prior mammograms as is a skin mole on the lateral aspect of the br east. There are no new spiculated masses nor malignant appearing microcalcification groups. There is no significant architectural distortion nor skin thickening-retraction. IMPRESSION: No radiographic evidence of malignancy. BI-RADS Category 1 - Negative Breast Density - Category B - Scattered areas of fibroglandular density Breast density Category C or D implies that the patient has dense breast tissue. Dense breast tissue can make it harder to find cancer on a mammogram. Dense breast tissue is also associated with an incr eased risk of breast cancer. This information about the result of the mammogram report was provided to the patient to raise their awareness. Use this report when you speak with the patient about their risks for breast cancer, which includes their family history. At that time, you may recommend additional screening tests (Ultrasoun d or MRI) as these tests may add significant information. A negative radiographic report should not delay biopsy if a dominant or clinically suspicious mass is present. Up to ten percent of cancers are not identified on mammography. A negative report may reinforce clinical impression. Adenosis and dense breasts may obscure an underlying neoplasm. False positive reports average 6 to 10%. Patient will receive a letter notifying them of these results.
== END ==
PROVIDERS: PCP Family Medicine; Visit Provider Family Medicine
DX: Z12.31 Encounter for screening mammogram for malignant neoplasm of breast (principal)
CPT/HCPCS: 77063; 77067

== ENCOUNTER 2023-07-09 13:03 | Emergency (ER) | payer MEDICARE, MEDICAID, SELFPAY ==
[2023-07-09 13:10] VITALS: BP 155/60; PULSE 81; RESP 16; TEMP 36.9; O2SAT 98
--- NOTE | 2023-07-09 13:45 | DI.CT_ITS ---
Exam(s) CT ABDOMEN PELVIS WO EXAM: CT ABDOMEN PELVIS WO CLINICAL HISTORY: left flank pain. TECHNIQUE: Imaging Protocol: Axial computed tomography images with coronal and sagittal reformatted images were created and reviewed CONTRAST MATERIAL: Intravenous: none Oral: None COMPARISON: CT CT CHEST PE CTA from 09/02/2022 FINDINGS: VISUALIZED LUNG BASES: There is a small 3 millimeter pleural base nodule in the lateral basal segment of the left lower lobe which is unchanged in size from 09/02/2022.. No pleural effusions. ABDOMEN: There is no ascites. LIVER: There are no obvious focal hepatic lesions evident of this noninfused study. GALLBLADDER/BILIARY: No obvious gallbladder pathology. CBD is not dilated. PANCREAS: No evidence of pancreatic mass nor dilatation of the pancreatic duct. SPLEEN: Spleen is not enlarged. No obvious intrasplenic lesions. ADRENALS: There are no significant adrenal masses. KIDNEYS:There are no kidney masses nor cysts nor intrarenal calculi. The left ureter in exhibits sli ghtly prominent caliber. There are no radiopaque calculi in the ureter. There is subtle thickening of the bladder wall base, possibly significant. Cannot exclude subtle neoplasm of the bladder.. ABDOMINAL AORTA: Abdominal aorta is not enlarged. LYMPH NODES: There is no retroperitoneal nor paraaortic adenopathy. ABDOMINAL WALL: No evidence of significant anterior abdominal wall nor inguinal hernia. GI: There is no evidence of bowel obstruction, free air, nor abscess. PELVIS: LYMPH NODES: There is no intrapelvic nor inguinal adenopathy. GI: No evidence of appendicitis.No evidence of sigmoid diverticulitis.The colon is collapsed. There is a fat halo sign throughout the transverse colon and splenic flexure of the colon. URINARY BLADDER: As above. REPRODUCTIVE: Uterus and adnexal regions unremarkable. OSSEOUS: No significant osseous lesions. No fractures. IMPRESSION: 1. There is mild dilatation left ureter. No radiopaque calculi evident in the kidneys and ureters no r within the urinary bladder. There is slight thickening of the wall of the base of the bladder. Re commend urology consult for possible cystoscopy. 2. Fat halo sign noted throughout the transverse colon. This can't sometimes be a normal finding whe n the colon is collapsed but can also be associated with chronic inflammatory bowel disease such as C rohn's or ulcerative colitis. 3. 3 mm pleural base nodule in the lateral basal segment of the left lower lobe, unchanged from CT sc an of 09/02/2022. Most probably benign. Called by myself to ER provider. RADIATION DOSE DELIVERED: Total DLP DATA REPOSITORY: All CT scans at this facility are submitted to the National Radiology Data Registry (NRDR) Dose Index Registry (DIR) with the [employer] (ACR). RADIATION OPTIMIZATION: All CT scans at this facility use at least one of these dose optimization te chniques: automated exposure control; mA and/or kV adjustment per patient size (includes targeted exa ms where dose is matched to clinical indication); or iterative reconstruction.
[2023-07-09] MEDS: ACETAMINOPHEN 1,000 MG/100 ML BTL 400 MG IVPB (13:57)
[2023-07-09 13:59] LABS: Abs Immature Grans 0.02 10^3/uL (0.0-0.06); Absolute Basophil Count 0.06 10^3/uL (0.0-0.2); Absolute Eosinophil Count 0.11 10^3/uL (0.0-0.7); Absolute Lymphocyte Count 2.09 10^3/uL (1.2-3.4); Absolute Monocyte Count 0.57 10^3/uL (0.1-0.8); Absolute Neutrophil Count 5.48 10^3/uL (1.2-6.7); Basophils % 0.7; Eosinophils % 1.3; HCT 40.5 % (36.0-46.0); HGB 13.8 g/dL (11.2-15.7); Immature Grans % 0.2; Lymphocytes % 25.1; MCH 29.2 pg (27.0-33.0); MCHC 34.1 % (32.0-36.0); MCV 86 fL (80-95); MPV 8.9 fL (8.0-11.0); Monocytes % 6.8; Neutrophils % 65.9; Platelet Count 275 10^3/uL (130-400); RBC 4.72 10^6/uL (3.93-5.22); RDW 12.2 % (11.7-14.6); RDW-SD 38.5 fL; WBC 8.33 10^3/uL (4.4-10.8)
[2023-07-09 14:02] LABS: Bilirubin Negative (Negative); Blood Negative (Negative); Clarity Clear (Clear); Glucose Negative (Negative); Ketones Negative (Negative); Leukocyte Esterase Trace (Negative); Nitrite Negative (Negative); Urobilinogen 0.2 mg/dL (Up to 0.2)
[2023-07-09 14:06] LABS: Bacteria Rare HPF (Negative); C & S Indicated? No; Casts Negative LPF (Negative); Crystals Negative HPF (Negative); Epithelial Cells Rare HPF (Negative); Mucus Negative (Negative); RBC 0-2 HPF (0-2)
[2023-07-09 14:24] LABS: ALT 24 U/L (14-59); AST 20 U/L (15-37); Alkaline Phosphatase 133 U/L (46-116); Anion Gap 8.3 mmol/L (3-11); BUN 15 mg/dL (7-18); Bilirubin, Total 0.5 mg/dL (0.2-1.0); CO2 30.7 mmol/L (21.0-32.0); CREATININE 0.8 mg/dL (0.55-1.02); Chloride 102 mmol/L (98-107); Estimated GFR 81.21 (mL/min/1.73m2); Glucose 100 mg/dL (74-106); Lipase 79 U/L (16-77); Potassium 3.6 mmol/L (3.5-5.1); Sodium 141 mmol/L (136-145); Total Protein 8.1 g/dL (6.4-8.2)
--- NOTE | 2023-07-09 15:39 | NUR.NOTE ---
Referral faxed to Urology for a visit due to Dilated Ureter and Possible UTI within 1-2 weeks.
[2023-07-09] MEDS: Cephalexin 500 MG CAP PO (15:42)
--- NOTE | 2023-07-09 15:46 | W.ED.GENAD ---
Discharge Plan Disposition Patient Disposition: Home Discharge Details Clinical Impression: Ureteral dilatation, Cystitis Primary Care Provider: Amy Nicholson ED Provider: Flory Pickens Home Meds and New Rx's Prescriptions: New cephalexin 500 mg capsule 500 mg PO Q8H 7 Days Qty: 21 0RF Continued tumeric PO DAILY Holy Basil PO DAILY Bacillus coagulans [Probiotic (B. coagulans)] PO bisacodyl [Dulcolax (bisacodyl)] 5 mg tablet,delayed release (DR/EC) 5 mg PO ONCE Qty: 4 0RF Rx Instructions: Colonoscopy Bowel Prep- Per Instructions polyethylene glycol 3350 17 gram/dose powder 238 g PO ONCE Qty: 238 0RF Rx Instructions: Colonoscopy Bowel Prep- Per Instructions cholecalciferol (vitamin D3) 25 mcg (1,000 unit) Tablet 2,000 units PO DAILY Qty: 30 0RF Discharge Instructions Additional Instructions: Take antibiotics as prescribed Yogurt daily while on antibiotic Follow-up with your appointment this week and return earlier should he have fever, chills, changes in your ability to urinate, or with any new or worsening complaints urology will call you to schedule follow-up laceration site: apply vit E oil twice daily Referrals: Amy Nicholson [Primary Care Provider] - Marquis Garcia MD [[facility] STAFF PHYSICIAN] - Medical Decision Making 63-year-old female presenting with left flank pain and suprapubic pressure and frequency abdominal exam relatively benign, some mild suprapubic pressure, no left flank tenderness, afebrile nontoxic, alert and oriented CT abdomen and pelvis shows dilated left ureter without obvious stone and evidence of cystitis, will treat with antibiotics, pending urine culture at this time Case discussed with Sparkle Jimenez, urology nurse practitioner recommends antibiotics and close outpatient follow-up with urology Of year will place on Keflex empirically pending urine culture Vitals are stable Labs are stable for patient Return precautions reviewed and patient expressed understanding HPI General Date/Time Provider Initiated Documentation: 07/09/23 13:27. HPI Narrative: This 67-year-old female with history of uterine prolapse presents with report of urinary frequency, suprapubic pressure pressure, and left flank pain. Denies any chest pain or shortness of breath. Denies any fever or chills. Has a history of prolapsed uterus. States she feels as though she is able to empty completely, started with suprapubic pressure and today had some left flank pain which concerned her. Denies any nausea or vomiting. Denies known exacerbating relieving factors. Related Data Home Medications Medication Instructions Recorded Confirmed Holy Basil PO DAILY 04/11/20 06/19/23 tumeric PO DAILY 04/11/20 06/19/23 cholecalciferol (vitamin D3) 25 2,000 units PO DAILY #30 tabs 09/04/22 06/19/23 mcg (1,000 unit) tablet Bacillus coagulans [Probiotic (B. PO 02/14/23 06/19/23 coagulans)] bisacodyl 5 mg tablet,delayed 5 mg PO ONCE Colonoscopy Bowel 05/08/23 06/19/23 release (Dulcolax (bisacodyl)) Prep #4 tabs polyethylene glycol 3350 17 238 g PO ONCE Colonoscopy Bowel 05/08/23 06/19/23 gram/dose oral powder Prep #238 grams cephalexin 500 mg capsule 500 mg PO Q8H 7 days #21 caps 07/09/23 Previous Rx's Medication Instructions Recorded cholecalciferol (vitamin D3) 25 2,000 units PO DAILY #30 tabs 09/04/22 mcg (1,000 unit) tablet bisacodyl 5 mg tablet,delayed 5 mg PO ONCE Colonoscopy Bowel 05/08/23 release (Dulcolax (bisacodyl)) Prep #4 tabs polyethylene glycol 3350 17 238 g PO ONCE Colonoscopy Bowel 05/08/23 gram/dose oral powder Prep #238 grams cephalexin 500 mg capsule 500 mg PO Q8H 7 days #21 caps 07/09/23 Allergies Allergy/AdvReac Type Severity Reaction Status Date / Time No Known Allergies Allergy Unverified 05/08/23 11:33 General Stated Complaint: FlankPain GERA: 3 PFSH All Active Problems (Updated 07/09/23 @ 15:45 by SADIE Griggs) Cystitis (Acute) Ureteral dilatation (Acute) Impacted cerumen, bilateral (Acute) Lung nodule (Acute) Closed head injury (Acute) Eyebrow laceration (Acute) COVID-19 (Acute) Syncopal episodes (Chronic) Tinnitus of left ear (Acute) Asymmetrical sensorineural hearing loss (Acute) Impairment of speech discrimination (Acute) Tinnitus, left (Acute) Asymmetrical sensorineural hearing loss (Acute) History of tonsillectomy and adenoidectomy (Acute) Hemorrhoids, internal (Acute) Tinnitus (Acute) Hearing loss in left ear (Acute) Osteoporosis of lumbar spine (Acute) Allergic rhinitis (Acute) Menopause (Acute) Prolapse of urethra (Acute) GERD (gastroesophageal reflux disease) (Chronic) Acute low back pain (Acute) Abdominal pain (Acute) Atherosclerosis (Acute) Pelvic pain (Acute) onset 09/2019 after accident while tubing. Sx worsening since. Suprapubic pain with position changes. Complete uterine prolapse with prolapse of anterior vaginal wall (Chronic) Encounter for screening for other viral diseases (Acute) Medical History Irritable bowel syndrome (IBS) H/O screening mammography Encounter for preventive care Surgical History H/O lumpectomy age 11, benign Rectocele, Paravaginal repair 1994 Endoscopy (01/07/95) EGD Colonoscopy - IV Sedation Biopsy of breast Family History Mother Heart disease Hypertension Stroke Father Personal history of malignant neoplasm neck cancer Paternal Uncle Stomach cancer Social History Smoking/Tobacco Use Status: Never Smoking risk assessment performed?: Yes Alcohol Intake: current Alcohol Intake frequency: a few times a week Alcohol type: wine Drug use: Socially Household members: none Housing: house Number of Children: 1 number of grandchildren: 3 current occupation: para-legal Pets and animals: No Sexually active: No What is your relationship status?: Panel score (0-1 are the most socially isolated patients): 0 Ramya/Bahai: Rastafarian Do you feel safe at home: Yes Do you feel safe in your relationship?: Yes Additional Social history: Son-Jarod Gustafson. 04/2020, Grandchildren 6/2.5yo Female Reproductive History Menstrual Menopause type: natural Course Vital Signs Vital signs: Vital Signs Temperature 36.9 C 07/09/23 13:10 Pulse 81 07/09/23 13:10 Respiratory Rate 16 07/09/23 13:10 Blood Pressure 155/60 H 07/09/23 13:10 Pulse Oximetry 98 07/09/23 13:10 Temperature 36.9 C 07/09/23 13:10 Temperature Source Temporal Artery Scan 07/09/23 13:10 Pulse 81 07/09/23 13:10 Respiratory Rate 16 07/09/23 13:10 Respiratory Effort Normal, Non-Labored 07/09/23 13:13 Blood Pressure 155/60 H 07/09/23 13:10 Pulse Oximetry 98 07/09/23 13:10 Lab/Test Results Lab/Test Results: Laboratory Tests Range/Units 07/09/23 07/09/23 13:50 13:53 WBC (4.4-10.8) 10^3/uL 8.33 RBC (3.93-5.22) 10^6/uL 4.72 Hgb (11.2-15.7) g/dL 13.8 Hct (36.0-46.0) % 40.5 MCV (80-95) fL 86 MCH (27.0-33.0) pg 29.2 MCHC (32.0-36.0) % 34.1 RDW (11.7-14.6) % 12.2 Plt Count (130-400) 10^3/uL 275 MPV (8.0-11.0) fL 8.9 Immature Gran % 0.2 Neutrophils % 65.9 Lymphocytes % 25.1 Monocytes % 6.8 Eosinophils % 1.3 Basophils % 0.7 Nucleated RBC % (0.0-0.3) % 0.0 Absolute Neutrophils (1.2-6.7) 10^3/uL 5.48 Absolute Lymphocytes (1.2-3.4) 10^3/uL 2.09 Absolute Monocytes (0.1-0.8) 10^3/uL 0.57 Absolute Eosinophils (0.0-0.7) 10^3/uL 0.11 Absolute Basophils (0.0-0.2) 10^3/uL 0.06 Sodium (136-145) mmol/L 141 Potassium (3.5-5.1) mmol/L 3.6 Chloride (98-107) mmol/L 102 Carbon Dioxide (21.0-32.0) mmol/L 30.7 Anion Gap (3-11) mmol/L 8.3 BUN (7-18) mg/dL 15 Creatinine (0.55-1.02) mg/dL 0.8 Est GFR (CKD-EPI 2020) (mL/min/1.73m2) 81.21 Glucose (74-106) mg/dL 100 Calcium (8.5-10.1) mg/dL 10.0 Total Bilirubin (0.2-1.0) mg/dL 0.5 AST (15-37) U/L 20 ALT (14-59) U/L 24 Alkaline Phosphatase (46-116) U/L 133 H Total Protein (6.4-8.2) g/dL 8.1 Albumin (3.4-5.0) g/dL 4.0 Lipase (16-77) U/L 79 H Urine Color (Yellow) Yellow Urine Clarity (Clear) Clear Urine pH (5-8) 6.0 Ur Specific Truman (1.005-1.025) 1.010 Urine Protein (Negative) mg/dL Negative Urine Ketones (Negative) mg/dL Negative Urine Blood (Negative) Negative Urine Nitrite (Negative) Negative Urine Bilirubin (Negative) Negative Urine Urobilinogen (Up to 0.2) mg/dL 0.2 Ur Leukocyte Esterase (Negative) Trace H Urine RBC (0-2) HPF 0-2 Urine WBC (0-5) HPF 3-5 Ur Epithelial Cells (Negative) HPF Rare Urine Crystals (Negative) HPF Negative Urine Bacteria (Negative) HPF Rare Urine Casts (Negative) LPF Negative Urine Mucus (Negative) Negative Ur Culture Indicated? No Urine Glucose (Negative) mg/dL Negative
== END 2023-07-09 16:05 | disposition home or self-care (01) ==
PROVIDERS: Emergency Provider Physician Assistant; PCP Family Medicine
DX: N28.82 Megaloureter (principal); N30.90 Cystitis, unspecified without hematuria; R91.1 Solitary pulmonary nodule
CPT/HCPCS: 80053; 83690; 96374; 99284; 74176; 81003; 81015; 85025; 99283; J0131

== ENCOUNTER → 2023-10-16 11:27 | Outpatient (BNVA) | payer MEDICARE, MEDICAID, SELFPAY | PROVIDERS: PCP Family Medicine; Referring Provider Family Medicine; Visit Provider Physical Therapy Assistant ==

== ENCOUNTER 2023-12-24 09:13 | Outpatient (REF) | payer MEDICARE, MEDICAID, SELFPAY ==
[2023-12-24 15:21] LABS: ALT 18 U/L (14-59); AST 14 U/L (15-37); Albumin 4.2 g/dL (3.4-5.0); Alkaline Phosphatase 109 U/L (46-116); Anion Gap 7.8 mmol/L (3-11); BUN 12 mg/dL (7-18); Bilirubin, Total 0.6 mg/dL (0.2-1.0); CO2 30.2 mmol/L (21.0-32.0); CREATININE 0.8 mg/dL (0.55-1.02); Calcium 9.7 mg/dL (8.5-10.1); Calculated LDL 137 mg/dL (<100); Chloride 107 mmol/L (98-107); Cholesterol 235 mg/dL (<200); Estimated GFR 80.71 (mL/min/1.73m2); Glucose 88 mg/dL (74-106); HDL Cholesterol 74 mg/dL (40-60); Sodium 145 mmol/L (136-145); Total Protein 7.4 g/dL (6.4-8.2); Triglyceride 120 mg/dL (<150)
== END 2023-12-24 09:14 | disposition home or self-care (01) ==
LOC: NCHCN 09:13
PROVIDERS: PCP Family Medicine; Visit Provider Family Medicine
DX: Z00.00 Encounter for general adult medical examination without abnormal findings (principal)
CPT/HCPCS: 80053; 80061; 82306

== ENCOUNTER → 2024-02-23 09:28 | Outpatient (BNVA) | payer MEDICARE, MEDICAID, SELFPAY | PROVIDERS: PCP Family Medicine; Referring Provider Family Medicine; Visit Provider Surgery | DX: Z12.11 Encounter for screening for malignant neoplasm of colon (principal); K64.8 Other hemorrhoids; R19.5 Other fecal abnormalities ==

== ENCOUNTER 2024-03-03 10:07 | Day surgery (SDC) | payer MEDICARE, MEDICAID, SELFPAY ==
--- NOTE | 2024-03-01 12:50 | PDOC.DSDIS_ITS ---
Date of service: 03/02/24 Discharge Plan Disposition Patient Disposition: Home Condition: Good Discharge Details Reason For Visit: colon scope Attending Provider: Jaylin Trivedi Primary Care Provider: Amy Nicholson Home Meds and New Rx's Prescriptions: Continued tumeric PO DAILY Holy Basil PO DAILY Bacillus coagulans [Probiotic (B. coagulans)] 1 tab PO DAILY cholecalciferol (vitamin D3) 25 mcg (1,000 unit) Tablet 2,000 units PO DAILY Qty: 30 0RF Discontinued polyethylene glycol 3350 17 gram/dose powder 238 g PO ONCE Qty: 238 0RF Rx Instructions: take per colonoscopy instructions bisacodyl [Dulcolax (bisacodyl)] 5 mg tablet,delayed release (DR/EC) 5 mg PO ONCE Qty: 4 0RF Rx Instructions: take per colonoscopy instructions Discharge Instructions Additional Instructions: DSU Colonoscopy Post- Op Instructions Instructions for Everyone who is given Anesthesia: For your safety, please do the following for the next twenty-four (24) hours: *Do Not operate a motor vehicle (car, truck, motorcycle, etc.) *Do Not drink alcoholic beverages or use any recreational drugs for the first 24 hours or while taking pain medications. The medications in your body may have a reaction that can be dangerous. *Do Not make any important decisions or sign any important papers. Findings: Follow up: 1. No lifting over 20 pounds or strenuous activity for the first 24 hours after your procedure. After 24 hours there are no restrictions on your activity but you may feel fatigued for a few days. 2. After you arrive home you may have a light meal and return to your normal diet as you can tolerate it without feeling sick to your stomach. 3. You may have a bloated, gaseous feeling in your belly (abdomen) after a colonoscopy. Passing gas and belching will help. Walking or lying down on your left side with your knees flexed may relieve the discomfort. Call the office at [phone] (Office) or [phone] (Hospital) right away if you notice any of the following: a.Vomiting of blood or ?coffee ground stools?. b.Rectal bleeding 1Tbsp, blood clots or continuous bleeding. c.Severe belly (abdominal) pain. d.A hard distended belly (abdomen) and an inability to pass gas. 4. Please don?t expect to have a normal BM (bowel movement) for 2-3 days after your procedure. 5. If there are questions regarding the findings of your procedure, please contact your doctor 6. If you are unable to contact your doctor with a problem, contact the hospital at [phone]. 7. Continue all your regular medications unless directed otherwise. I understand the above instructions and have no questions. Signature of Patient or Adult Escort Name of Responsible Adult Escort Signature of Nurse Date/Time Activity:: see above Diet:: see above Discharge Orders Discharge Orders: Discharge Order (Routine); Ordered 03/01/24 Ordered By: Jaylin Trivedi DS: Diagnosis Discharge Diagnosis (1) Atherosclerosis: Status: Acute (2) Osteoporosis of lumbar spine: Status: Acute (3) Hyperlipidemia: (4) GERD (gastroesophageal reflux disease): Status: Chronic (5) Hemorrhoids, internal: Status: Acute (6) Positive colorectal cancer screening using Cologuard test: Status: Acute Asessment and Plan: The patient is seen and examined after their colonoscopy.? The patient has been able to pass gas.? They are not having abdominal pain.? They have been able to tolerate liquids and a snack.? They do not have any nausea or vomiting.? They are not having any chest pain or shortness of breath.??? They are not having any rectal bleeding. Their vital signs have been stable-see nursing notes. We discussed findings during their colonoscopy, and any biopsies that were done/polyps that were removed. The patient will be sent a letter with any biopsy results, and when to repeat the colonoscopy.-see discharge instructions. Patient was given explicit instructions to follow-up regarding colonoscopy-refer to discharge instructions.? We reviewed resumption of medications. Patient verbalized understanding and discharged in stable and satisfactory condition- See nursing notes.
--- NOTE | 2024-03-01 16:00 | COLE_ITS ---
Colonoscopy Report Date of procedure: 03/02/24 Pre-op diagnosis general: crc screening and possible hemorrhoid banding Surgeon: Jaylin Trivedi Anesthesia Type: General:No Airway Complications: None Disposition: same day Prep: Miralax/Dulcolax Procedure Description: After informed consent was obtained, explaining risks of the procedure, including but not limits to: bleeding, infections, complications of anesthesia, perforations (which may require antibiotics and /or surgery and stay in the hospital), and abdominal pain/cramping. The patient was taken to the procedure room and placed in a left decubitous position. Monitors were applied and a time out was done. The patients name, date of , procedure, allergies to medications and metal in their body was reviewed. The patient was then sedated. Once sedated and comfortable a rectal exam was done. External exam was normal. Internal exam revealed a normal sphincter tone and no palpable masses. The prost ate []. The previously lubricated Olympus scope was then introduced (see RN notes for scope number) and retrofelexed. [] internal hemorrhoids were identified. The scope was then advanced to the cecum without difficulty. The TI and appendiceal orifice were identified. The scope was then slowly retracted over [] minutes back into the rectum. Polyps: []. Diverticula: []. The mucosa is pink and healthy w/ a normal vascular pattern. The scope was removed, and the patient was woken up and taken back to Same day surgery in stable condition. The patient tolerated the procedure well and there were no immediate complications. Follow up: The patient should follow up in [] years, unless they develop changes in bowel habits or other new gastrointestinal complaints.
--- NOTE | 2024-03-02 14:22 | W.PM.DSUDISC ---
Date of service: 03/03/24 Time of Service: 14:13 Discharge Plan Disposition Patient Disposition: Home Condition: Good Discharge Details Reason For Visit: colon scope Attending Provider: Familia Thompson Primary Care Provider: Amy Nicholson Home Meds and New Rx's Prescriptions: Continued tumeric PO DAILY Holy Basil PO DAILY Bacillus coagulans [Probiotic (B. coagulans)] 1 tab PO DAILY cholecalciferol (vitamin D3) 25 mcg (1,000 unit) Tablet 2,000 units PO DAILY Qty: 30 0RF Discontinued polyethylene glycol 3350 17 gram/dose powder 238 g PO ONCE Qty: 238 0RF Rx Instructions: take per colonoscopy instructions bisacodyl [Dulcolax (bisacodyl)] 5 mg tablet,delayed release (DR/EC) 5 mg PO ONCE Qty: 4 0RF Rx Instructions: take per colonoscopy instructions Discharge Instructions Instructions: Colon polyps Additional Instructions: Lisa, we were able to complete your colonoscopy today without any issues. I did find and remove 3 polyps today. Everything went very smoothly, and I hope you are comfortable. None of the polyps have any features that are worrisome to the naked eye, but to be safe, I will send them off for testing. It usually takes about a week or 2 to get the results of the polyp report, and that information is typically used to guide the timing of your next colonoscopy. As soon as we have those results, the office will be in touch. If you have any questions, or need anything in the meantime, please do not hesitate to ask. 1. If tolerated, consume a soft, low fiber diet for 1-2 days. 2. Do not drive, drink alcohol, operate machinery, make critical decisions, or do activities that require coordination or balance for 24 hours. 3. Because air was put into your colon during the procedure, expelling air from your rectum (passing gas or farting) is normal. 4. You may not have a bowel movement for 1-3 days because of the colonoscopy prep. This is normal. 5. Go directly to the emergency room if you notice any of the following: Develop chills (warm to touch), or if you have a thermometer and your temperature is above 101 Difficulty breathing or difficultly swallowing Persistent vomiting Severe abdominal pain, other than gas cramps Severe chest pain Black, tarry stools Any bleeding ? exceeding one tablespoon 6. Call your physician if the site where your intravenous was started becomes red, swollen, painful, and warm to touch. 7. Your physician has reviewed your pre-procedure medications. Please continue to take those medications as previously ordered. You will be given specific information/education regarding any changes to your medications before leaving. Stand Alone Forms: Anesthesia Discharge InstHugo Abad (DSU) Activity:: see above Diet:: see above Discharge Orders Discharge Orders: Discharge Order (Routine); Ordered 03/01/24 Ordered By: Jaylin Trivedi DS: Diagnosis Discharge Diagnosis (1) Atherosclerosis: Status: Acute (2) Osteoporosis of lumbar spine: Status: Acute (3) GERD (gastroesophageal reflux disease): Status: Chronic (4) Hemorrhoids, internal: Status: Acute (5) Positive colorectal cancer screening using Cologuard test: Status: Acute Asessment and Plan: Follow-up on polypectomy results
--- NOTE | 2024-03-02 14:22 | W.COLOREPORT ---
Date of service: 03/03/24 Time of Service: 14:15 Colonoscopy Report Date of procedure: 03/03/24 Pre-op diagnosis general: Positive Cologuard test Post-op diagnosis procedure note: other (Colon polyps) Procedure: Colonoscopy with polypectomy Surgeon: Familia Thompson Anesthesia Type: General:No Airway Estimated blood loss (mL): 5 Pathology: other (0.25 cm polyps at 70 cm x 2, 0.25 cm polyp at 65 cm) Complications: None Disposition: same day Indications: Lisa is 68 years old, she recently had a positive Cologuard test. She needs a follow-up screening colonoscopy Prep: Miralax/Dulcolax Procedure Start Time: 13:36 Procedure End Time: 14:07 Retraction Time: 23 Findings: Internal hemorrhoids, 0.25 cm polyps at 70 cm x 2, 0.25 cm polyp at 65 cm Procedure Description: After the induction of monitored anesthetic care, and with the patient in left lateral decubitus position, I began by performing an external anorectal exam.? Perineum and skin were normal, as was the anal verge.? Next, I performed a digital rectal exam.? I did not appreciate any abnormal findings.? Next, I advanced a colonoscope into the rectal vault.? I performed retroflexion.? There are internal hemorrhoids.? Using insufflation, I then advanced the colonoscope beyond the rectal folds and into the sigmoid colon before advancing towards the cecum.? The scope was noted to be in the cecum by identification of the ileocecal valve and appendiceal orifice.? There was some fecal contamination, but we are able to irrigate most of the colon clean, and get an adequate visualization. Around 70 cm from the anal verge were 2 polyps. There were just a few millimeters away from 1 another. Each polyp was less than 0.25 cm. These were both flat. I removed these with cold forceps today without any issues. Around 65 cm from the anus was another polyp. This was slightly smaller, but still close to 0.25 cm. This was flat. I removed this with cold forceps as well. There was no significant bleeding from any of the polypectomy sites. Once the scope was withdrawn to the level of the rectum, great care was taken to examine portions of the rectal folds.? Finally, the scope was withdrawn and the patient was brought to the same-day surgery recovery unit as the anesthetic wore off. ?The findings and instructions were shared with the patient prior to discharge. Charlotte Bowel Prep Charlotte Bowel Prep Right Colon: 1 Left Colon: 2 Transverse Colon: 2 Total Score: 5
[2024-03-03 10:37] VITALS: BP 187/69; PULSE 68; RESP 16; TEMP 36.3; O2SAT 100
[2024-03-03] MEDS: Lactated Ringers 1,000 ML 80 ML IV (11:01)
--- NOTE | 2024-03-03 11:38 | W.ANESPRE ---
General Info Date of Service Date Performed: 03/03/24 Height: 5 ft 2.75 in Weight: 59.6 kg Body Mass Index (BMI): 23.4 Surgical Procedure: Operation Date: 03/03/24 12:25 Proposed Procedure Side Surgeon p Colonoscopy Familia Thompson MD s Hemorrhoid Banding Familia Thompson MD Meds Allergies and Home Medications Allergies Allergy/AdvReac Type Severity Reaction Status Date / Time No Known Allergies Allergy Verified 03/03/24 10:45 Home Medication ?Medication ?Instructions ?Recorded Holy Basil PO DAILY 04/11/20 tumeric PO DAILY 04/11/20 cholecalciferol (vitamin D3) 25 2,000 units PO DAILY #30 tabs 09/04/22 mcg (1,000 unit) tablet Bacillus coagulans 1 tab PO DAILY 02/14/23 Current Visit Medications: Current Medications Generic Name Dose Route Start Last Admin Trade Name Freq PRN Reason Stop Dose Admin Acetaminophen 1,000 mg 03/03/24 06:00 Acetaminophen 500 Mg Tab PO 03/03/24 23:59 PREOP JEANNETTE Gabapentin 600 mg 03/03/24 06:00 Gabapentin 300 Mg Cap PO 03/03/24 23:59 PREOP JEANNETTE Hyoscyamine Sulfate 0.125 mg 03/03/24 06:00 Hyoscyamine 0.125 Mg Sl/Oral/Chew SL 03/03/24 23:59 PRN PRN Hyoscyamine Sulfate 0.125 mg 03/03/24 06:00 Hyoscyamine 0.125 Mg Sl/Oral/Chew SL 03/03/24 16:00 PREOP JEANNETTE Ringer's Solution 1,000 mls @ 80 mls/hr 03/03/24 06:00 03/03/24 11:01 IV 03/03/24 23:59 80 mls/hr INFUSION JEANNETTE Administration IV Miscellaneous Supplies 1 each 03/03/24 06:00 Iv Access IV 03/03/24 23:59 DIRECTED JEANNETTE Ondansetron HCl 4 mg 03/02/24 14:23 Ondansetron 4 Mg/2 Ml Vial IVP 04/01/24 14:22 Q4H PRN PRN Nausea / Vomiting Sodium Chloride 0 ml 03/03/24 06:00 Normal Saline Flush 10 Ml Syr IV 03/03/24 23:59 PRN PRN Sodium Chloride 0 ml 03/03/24 06:00 Normal Saline 10 Ml Vial IJ 03/03/24 23:59 DIRECTED PRN Sterile Water 0 ml 03/03/24 06:00 Water,Injection,Sterile 10 Ml Vial IJ 03/03/24 23:59 DIRECTED PRN PFSH Active Problems Active Problems: Problem Status Onset Code Positive colorectal cancer screening using Cologuard test Acute R19.5 Actinic keratoses Acute L57.0 Impacted cerumen, bilateral Acute H61.23 Lung nodule Acute R91.1 Syncopal episodes Chronic R55 Tinnitus of left ear Acute H93.12 Impairment of speech discrimination Acute H93.299 Tinnitus, left Acute H93.12 Hemorrhoids, internal Acute K64.8 Tinnitus Acute H93.19 Hearing loss in left ear Acute H91.92 Osteoporosis of lumbar spine Acute M81.0 Menopause Acute Z78.0 Prolapse of urethra Acute N36.8 GERD (gastroesophageal reflux disease) Chronic K21.9 Abdominal pain Acute R10.9 Atherosclerosis Acute I70.90 Pelvic pain Acute R10.2 Encounter for screening for other viral diseases Acute Z11.59 Medical History Medical History Eyebrow laceration COVID-19 Complete uterine prolapse with prolapse of anterior vaginal wall Closed head injury Pt. states she had COVID and fainted Acute low back pain Asymmetrical sensorineural hearing loss Allergic rhinitis Asymmetrical sensorineural hearing loss Hyperlipidemia Basal cell carcinoma of face Irritable bowel syndrome (IBS) H/O screening mammography Encounter for preventive care Medical History Comments:: 03/03/24: pt reports she had a CT scan in [facility] in Jul 2023, for abdominal pain. Surgical History Surgical History History of tonsillectomy and adenoidectomy History of hysterectomy (~08/11/23) H/O lumpectomy age 11, benign Rectocele, Paravaginal repair 1994 Endoscopy (01/07/95) EGD Colonoscopy - IV Sedation Biopsy of breast Tobacco Smoking/Tobacco Use Status: Never Alcohol Alcohol Intake: current Alcohol intake frequency: a few times a week Alcohol type: wine Substance Use Substance use: Never Substance use type: does not use Vital Signs and Lab Results Vital Signs Most Recent Vital Signs in EMR: Most Recent Vital Signs Temp Pulse Resp BP Pulse Ox 36.3 C L 68 16 187/69 H 100 03/03/24 10:37 03/03/24 10:37 03/03/24 10:37 03/03/24 10:37 03/03/24 10:37 Lab Results Blood Type / Crossmatch: No Data to Display Complete Blood Count: No Data to Display Complete Metabolic Panel: No Data to Display Liver Function Panel: No Data to Display Coagulation Panel: No Data to Display Cardiac Panel: No Data to Display Arterial Blood Gas: No Data to Display Venous Blood Gas: No Data to Display Pancreas Panel: No Data to Display Thyroid Panel: No Data to Display Infectious Disease: No Data to Display Blood Cultures: No Data to Display Toxicology Panel: No Data to Display Imaging and Studies Imaging and Studies Study information below may be from another EMR and interpreted by another provider. Please see original notes in EMR for more complete details. EKG Summary: Conclusion Sinus rhythm...normal P axis, V-rate 60- 99 Left ventricular hypertrophy...multiple voltage criteria 09/02/22 Echocardiogram Summary: [facility] 09/03/22 EF 50-55%, no valvular disease Pulmonary Function Summary: Impression Normal pulmonary function, possibly with hyperinflation. Clinical Correlation therefore is recommended. 05/16/23 Anesthesia Assessment and Plan Anesthesia History Personal History: No History of Anesthesia Complications Family History: No Family History of Anesthesia Complications Exercise Tolerance Exercise Tolerance: Metabolic Equivalents>4 Pertinent Negatives Pertinent Negatives: No Symptoms of GERD, No Major Cardiovascular Symptoms or Complaints and No Major Pulmonary Symptoms or Complaints Cardiac & Pulmonary Exam Cardiac Exam: Normal S1/S2 Heart Sounds Pulmonary Exam: Clear Bilateral Breath Sounds Implantable Cardiac Device Does patient have a Pacemaker or an ICD?: No Airway Exam Known Difficult Airway: No Mallampati Class: 2 Mouth Opening: Normal (> 3cm) Thyromental Distance: Greater than 3 cm Neck Range of Motion: Full ROM Neck Circumference: Normal Teeth Condition: Normal Dentition (upper back molars missing) ASA Classification ASA Score: ASA 2 Emergency Case?: No NPO Status NPO Status: NPO Clears >2 hours, Solids >8 hours Anesthesia Plan Resuscitation Status: Full Code Anesthesia Technique: General Anesthesia Airway Planned: Natural Airway Monitors Used: Standard Monitors
[2024-03-03 11:46] VITALS: BMI 23.4
--- NOTE | 2024-03-03 12:12 | SUR.PREOP ---
10:45am Pt scheduled to receive pre-op Acetaminophen 1000mg, Gabapentin 600mg and pre-op Levsin. Pt verbalised she does not want to proceed with hemorrhoid banding, This RN communicated this to Dr. Thompson who verbalised pt does not need to have pre-op medications listed above. This RN informed pharmacy ([facility]) who reported she will removed scheduled pre-op meds from [facility] based on verbal MD order. George TRAYLOR 12:21pm
--- NOTE | 2024-03-03 13:52 | BOWEL_PTH ---
PATIENT: Lisa Diaz LOC: [facility] U#:[id number] AGE/SX: 68/F ROOM: RE03/03/[address]: Familia Thompson MD : [id number] BED: DIS: 03/03/2024 SPEC #: [id number] RECD: 03/03/24 18:39 STATUS: TIANNA REQ #: [id number] SHELLI: 03/03/24 13:[address]: Familia Thompson DEPT: Surgical Specimen RECD BY: Flory Lema ENTERED: 03/03/24 18:41 SP TYPE: Bowel OTHR DR: Amy Nicholson Tissues: 1 - BIOPSY BOWEL 2 - BIOPSY BOWEL Procedures: GROSS AND MICRO LEVEL 4 Comments: [id number]
[2024-03-03 14:13] VITALS: BP 142/79; PULSE 74; RESP 18; TEMP 36.7; O2SAT 97
[2024-03-03 14:49] VITALS: BP 130/69; PULSE 61; RESP 16; TEMP 36.1; O2SAT 100
--- NOTE | 2024-03-03 14:58 | W.ANESPOSTOP ---
Postoperative Evaluation Date, Time and Location Date Performed: 03/03/24 Time Performed: 14:26 Patient Location: Day Surgery Unit Vital Signs Most Recent Imported Vital Signs: Most Recent Vital Signs Temp Pulse Resp BP Pulse Ox 36.7 C 74 18 142/79 H 97 03/03/24 14:13 03/03/24 14:13 03/03/24 14:13 03/03/24 14:13 03/03/24 14:13 Pain Score Most Recent Pain Score: Most Recent Pain Score Pain Level 0 03/03/24 14:13 Assessment Mental Status: Awake (Alert & Oriented to Patient Baseline) Airway and Respiratory Function: Patent airway with normal (patient baseline) respiratory exam Cardiovascular Function: Hemodynamically Stable Hydration Status: Adequately Hydrated Nausea & Vomiting: No Nausea or Vomiting Pain: Pt. Denies Any Pain Peripheral Nerve Block: Patient did not receive a nerve block
== END 2024-03-03 15:39 | disposition home or self-care (01) ==
LOC: SUR 10:08
PROVIDERS: PCP Family Medicine; Visit Provider Surgery
PROC: 0DJD8ZZ Inspection of Lower Intestinal Tract, Via Natural or Artificial Opening Endoscopic (ICD-10-PCS; CPT 45378; principal; 2024-03-03 12:15)
DX: Z12.11 Encounter for screening for malignant neoplasm of colon (principal); R19.5 Other fecal abnormalities; D12.4 Benign neoplasm of descending colon
CPT/HCPCS: 45380; 88305; J2001; J2250; J2405; J2704

== ENCOUNTER 2025-01-04 11:54 | Outpatient (REF) | payer MEDICARE, SELFPAY ==
[2025-01-04 17:13] LABS: ALT 18 U/L (14-59); AST 19 U/L (15-37); Albumin 3.9 g/dL (3.4-5.0); Alkaline Phosphatase 126 U/L (46-116); Anion Gap 3.9 mmol/L (3-11); BUN 14 mg/dL (7-18); Bilirubin, Total 0.4 mg/dL (0.2-1.0); CO2 32.1 mmol/L (21.0-32.0); CREATININE 0.6 mg/dL (0.55-1.02); Calcium 9.4 mg/dL (8.5-10.1); Calculated LDL 142 mg/dL (<100); Chloride 105 mmol/L (98-107); Cholesterol 242 mg/dL (<200); Estimated GFR 97.71 (mL/min/1.73m2); Glucose 95 mg/dL (74-106); HDL Cholesterol 64 mg/dL (>or=50); Potassium 4.2 mmol/L (3.5-5.1); Sodium 141 mmol/L (136-145); Total Protein 6.9 g/dL (6.4-8.2); Triglyceride 180 mg/dL (<150); Vitamin D 25 Total 26 ng/mL (30-100)
== END 2025-01-04 11:55 | disposition home or self-care (01) ==
LOC: NCHCN 11:54
PROVIDERS: PCP Family Medicine; Visit Provider Family Medicine
DX: E78.5 Hyperlipidemia, unspecified (principal); Z00.00 Encounter for general adult medical examination without abnormal findings
CPT/HCPCS: 80053; 80061; 82306

== ENCOUNTER 2025-01-30 08:17 | Emergency (ER) | payer MEDICARE, SELFPAY ==
[2025-01-30 08:39] VITALS: BP 138/54; PULSE 68; RESP 15; O2SAT 98
--- NOTE | 2025-01-30 08:58 | DI.RAD_ITS ---
Exam(s) XR KNEE RT 3V AP,LAT,JAMARI EXAM: XR KNEE RT 3V AP,LAT,JAMARI CLINICAL HISTORY: pain with standing, soccer injury. TECHNIQUE: 2D digital imaging was performed. Three views. COMPARISON: No exams were available for comparison FINDINGS: Exam is limited by overlying clothing. BONES: No acute fracture is present. No bony destructive lesion is seen. JOINTS: The knee is normally aligned. The joint spaces are maintained. There is minimal spurring at the articular aspect of the patella. A small joint effusion is seen. SOFT TISSUE: Normal. IMPRESSION: Small joint effusion. Minimal degenerative changes. The preliminary [facility] report was reviewed. DATA REPOSITORY: RADIATION DOSE DELIVERED:
[2025-01-30] MEDS: Ibuprofen 600 MG TAB PO (09:02)
--- NOTE | 2025-01-30 09:06 | ED.GENADUL_ITS ---
Discharge Plan Disposition Patient Disposition: Home Condition: Stable Discharge Details Clinical Impression: Right knee sprain Primary Care Provider: Amy Nicholson ED Provider: Claribel Fagan Home Meds and New Rx's Prescriptions: No Action tumeric PO DAILY Holy Basil PO DAILY Bacillus coagulans [Probiotic (B. coagulans)] 1 tab PO DAILY cholecalciferol (vitamin D3) 25 mcg (1,000 unit) Tablet 2,000 units PO DAILY Qty: 30 0RF Discharge Instructions Instructions: Knee Sprain (DC) Additional Instructions: You were seen in the emergency department today for evaluation of a right knee injury. In our department had a full physical examination performed and had x- ray imaging that did not show any fractures. You do have some swelling in that area and I recommend that you continue to use ice and elevation for management of the swelling. You most likely are experiencing a strain or disruption of the internal structures of the knee. Please use therapeutic dosing of Tylenol (acetaminophen) & Advil (ibuprofen) in an alternating fashion as follows: Take 1000mg of Tylenol every 6 hours without missing doses- that is 4 times per day. Detention in between the Tylenol doses, take 600mg of Advil also on a 6 hour schedule, that is also 4 times per day. With this strategy, you will be taking something for fever/pain as often as every 3 hours. The daily maximum dosing of Tylenol is 4000mg, and the daily maximum dosing of Advil is 2400mg. Please note that some common cold medications & prescription pain medications may contain acetaminophen and you need to read OTC drug labels and factor that in to maximum daily doses. We have placed you in a hinged knee brace which you should wear for support and comfort. It is safe for you to put weight on the leg, but if you need crutches those can be utilized. I provided a referral for orthopedics, if your symptoms have not improved in the next few days to 1 week you can contact their clinic to make an appointment. Please follow-up with your primary care provider in the n ext few days to discuss this visit and any symptoms that change, worsen, or persist. Thank you for allowing us to be part of your care. Referrals: Clark Roberson MD [ [facility] STAFF PHYSICIAN, Orthopaedic Surgical] - 1 week HPI General Mode of arrival: ambulatory . Date/Time Provider Initiated Documentation: 01/30/25 08:27 . Limitations to Documentation: no limitations . Information obtained by: patient and old records reviewed . HPI Narrative: This is a 69-year-old female patient presenting for evaluation of right knee injury. The patient reports that yesterday she was playing soccer with her grandkids, and was kicking the ball. She began to have pain in her knee after this game, states that she did not have any distinct moment when her pain began, did not fall or sustain other injury. She was able to bear weight on her knee but it hurts quite significantly, did ambulate into the emergency department with antalgic gait. She reports that she feels like her foot below her knee is stiff and tingly, has noted some swelling in her knee, no sensory loss or weakness. She states that her pain is generalized and worse with movement, but does not seem to change with palpation. Prior to this event she was in her normal state of health. She reports that she had some clicking in her knee that has since resolved. She states that she took 200 mg of ibuprofen for this pain, has used ice and elevation without improvement. Related Data Home Medications ?Medication ?Instructions ?Recorded ?Confirmed Holy Basil PO DAILY 04/11/20 01/25/25 tumeric PO DAILY 04/11/20 01/25/25 cholecalciferol (vitamin D3) 25 2,000 units PO DAILY # 30 tabs 09/04/22 01/30/25 mcg (1,000 unit) tablet Bacillus coagulans 1 tab PO DAILY 02/14/2301/03 Previous Rx's ?Medication ?Instructions ?Recorded cholecalciferol (vitamin D3) 25 2,000 units PO DAILY # 30 tabs 09/04/22 mcg (1,000 unit) tablet Allergies Allergy/AdvReac Type Severity Reaction Status Date / Time No Known Allergies Allergy Verified 01/30/25 08:49 General Stated Complaint: Orthopedic GERA: 4 Exam Narrative Exam Narrative: Gen: Awake and alert, in no apparent distress HEENT: Non-icteric sclera Neck: Supple Lungs: No apparent respiratory distress, normal respiratory effort. CV: Appears well perfused Abdomen: Non-distended MSK: Moves 4 extremities without apparent limitation in ROM with the exception of the right knee, which is painful during range of motion though range of motion is able to be completed. She has a small knee effusion that is palpable, no overlying skin changes. She has some generalized tenderness to palpation of the medial and lateral joint lines and popliteal fossa, does not have any reproduction of pain nor laxity with valgus or varus stressing and has a firm endpoint on Dennis's testing. Skin: Visualized skin without rashes, cyanosis. Neuro: Antalgic gait, no obvious focal deficits or facial asymmetry. Speaks in full, clear sentences. The patient has strong DP pulses distal to this injury, preserved strength and sensation of the right lower extremity. Psych: Appropriate for situation. Course Vital Signs Vital signs: Vital Signs Pulse 68 01/30/25 08:39 Respiratory Rate 15 01/30/25 08:39 Blood Pressure 138/54 L 01/30/25 08:39 Pulse Oximetry 98 01/30/25 08:39 Pulse 68 01/30/25 08:39 Respiratory Rate 15 01/30/25 08:39 Blood Pressure 138/54 L 01/30/25 08:39 Blood Pressure Position Sitting 01/30/25 08:39 Pulse Oximetry 98 01/30/25 08:39 Oxygen Delivery Method Room Air 01/30/25 08:39 Oxygen Flow Rate 0 01/30/25 08:39 Pain Level 5 01/30/25 08:52 Comment Pain increases with ambulation 01/30/25 08:39 Medical Decision Making This is a 69-year-old female patient presenting for evaluation of knee pain. My differential includes but is not limited to fracture, dislocation, internal derangement/sprain, certainly considered contusion and strain. I considered neurovascular injury though the patient is reassuringly without hard signs on her physical examination to suggest same. Considered arthritis. I provided the patient with a dose of ibuprofen, patient declined Tylenol. I will obtain an x-ray image of the affected knee. - I reviewed the patient's x-ray, and note no osseous abnormalities or fractures, though she does have some suprapatellar swelling, and I have provided her with a hinged knee brace for her presumed right knee sprain. She was able to ambulate but did request a cane for support and balance, did not require crutches. I counseled her on conservative management including Tylenol and ibuprofen as well as ice and elevation, provided her with a orthopedics consult for 1 pain that persists past the next few days despite these measures, and at this time, the patient has had a full medical evaluation and is safe for discharge to home. They are hemodynamically stable, ambulatory, and tolerating PO. They are understanding of the follow-up plan and return precautions. They left our facility without incident. Claribel Fagan MD [facility] All Active Problems (Updated 01/30/25 @ 09:46 by Claribel Fagan MD) Right knee sprain (Acute) Tubular adenoma of colon (Acute ~02/2024) Positive colorectal cancer screening using Cologuard test (Acute) Actinic keratoses (Acute) Impacted cerumen, bilateral (Acute) Lung nodule (Acute) Syncopal episodes (Chronic) Tinnitus of left ear (Acute) Impairment of speech discrimination (Acute) Tinnitus, left (Acute) Hemorrhoids, internal (Acute) Tinnitus (Acute) Hearing loss in left ear (Acute) Osteoporosis of lumbar spine (Acute) Menopause (Acute) Prolapse of urethra (Acute) GERD (gastroesophageal reflux disease) (Chronic) Abdominal pain (Acute) Atherosclerosis (Acute) Pelvic pain (Acute) onset 09/2019 after accident while tubing. Sx worsening since. Suprapubic pain with position changes. Encounter for screening for other viral diseases (Acute) Medical History Eyebrow laceration COVID-19 Complete uterine prolapse with prolapse of anterior vaginal wall Closed head injury Pt. states she had COVID and fainted Acute low back pain Asymmetrical sensorineural hearing loss Allergic rhinitis Asymmetrical sensorineural hearing loss Hyperlipidemia Basal cell carcinoma of face Irritable bowel syndrome (IBS) H/O screening mammography Encounter for preventive care Surgical History History of colonoscopy (~02/2024) History of tonsillectomy and adenoidectomy History of hysterectomy (~08/11/23) H/O lumpectomy age 11, benign Rectocele, Paravaginal repair 1994 Endoscopy (01/07/95) EGD Colonoscopy - IV Sedation Biopsy of breast Family History Mother Heart disease Hypertension Stroke Father Personal history of malignant neoplasm neck cancer Paternal Uncle Stomach cancer Social History Smoking/Tobacco Use Status: Never Smoking risk assessment performed?: Yes Alcohol Intake: current Alcohol Intake frequency: a few times a week Alcohol type: wine Drug use: Never Substance use type: does not use Household members: none Housing: house Number of Children: 1 number of grandchildren: 3 current occupation: para-legal Pets and animals: No Sexually active: No What is your relationship status?: Panel score (0-1 are the most socially isolated patients): 0 Ramya/Jain: Quaker Do you feel safe at home: Yes (lives alone) Do you feel safe in your relationship?: Yes Female Reproductive History Menstrual Menopause type: natural
--- NOTE | 2025-01-30 09:36 | DI.[facility]_ITS ---
PROCEDURE INFORMATION: Exam: XR Right Knee Exam date and time: 01/30/2025 9:25 AM Age: 69 years old Clinical indication: Other: Pain with standing, soccer injury TECHNIQUE: Imaging protocol: Radiologic exam of the right knee. Views: 3 views. COMPARISON: No relevant prior studies available. FINDINGS: No acute fracture seen. Small suprapatellar effusion. IMPRESSION: No acute fracture seen. Dictated and Authenticated by: Madie Briseno MD. Orderin [facility] Blade Sanford MD
== END 2025-01-30 10:16 | disposition home or self-care (01) ==
PROVIDERS: Emergency Provider Emergency Medicine; PCP Family Medicine
DX: S83.91XA Sprain of unspecified site of right knee, initial encounter (principal); Y93.66 Activity, soccer; X50.0XXA Overexertion from strenuous movement or load, initial encounter
CPT/HCPCS: 99283 ×2; 29505; 73562

== ENCOUNTER → 2025-02-16 09:56 | Outpatient (BNVA) | payer MEDICARE, SELFPAY | PROVIDERS: PCP Family Medicine; Referring Provider Family Medicine; Visit Provider Student in an Organized Health Care Education/Training Program | DX: S83.91XA Sprain of unspecified site of right knee, initial encounter (principal); X50.0XXA Overexertion from strenuous movement or load, initial encounter; Y93.66 Activity, soccer | CPT/HCPCS: 99213 ==

== ENCOUNTER 2025-02-23 01:50 | Outpatient (CLI) | payer MEDICARE, SELFPAY ==
[2025-02-23] MEDS: Barium Sulfate 2% W/V-Creamy Vanilla Smoothie 450 ML BTL PO (07:29)
[2025-02-23] MEDS: Barium Sulfate 2% W/V-Berry Smoothie 450 ML BTL PO (07:30)
[2025-02-23] MEDS: Normal Saline - Diluent 50 ML VIAL IJ (09:36)
[2025-02-23] MEDS: Omnipaque 350 MG/ML 500 ML BTL-Imaging package 75 ML IJ (09:37)
--- NOTE | 2025-02-23 09:56 | DI.CT_ITS ---
Exam(s) CT ABDOMEN PELVIS W EXAM: CT ABDOMEN PELVIS W CLINICAL HISTORY: LLQ ABD PAIN R10.32 TECHNIQUE: Imaging Protocol: Axial computed tomography images with coronal and sagittal reformatted images were created and reviewed. CONTRAST MATERIAL: Intravenous: Omnipaque 350 Contrast volume:75 mL Oral: Yes COMPARISON: CT CT CHEST PE CTA from 09/02/[address] ABDOMEN PELVIS WO from 07/09/2023 FINDINGS: ABDOMEN: Lung Bases: There is a small hiatal hernia. There is a stable left lower lobe pulmonary nodule peripherally. Liver: Normal density. No measurable mass. Portal, Superior Mesenteric, and Splenic Veins: Unremarkable. Gallbladder and Biliary Tract: No radiodense calculus or dilation. Pancreas: Normal density, no abnormal calcifications or inflammatory process. Spleen: Normal. Adrenals: No masses seen. Kidneys: Normal size, contour and axis. No radiodense stones or obstructive uropathy. No masses seen. Abdominal Aorta: Abdominal portion non-dilated. Atherosclerotic calcification is present. Bowel: No obstruction or bowel wall thickening. There is a moderate amount of stool throughout the colon suggesting constipation. There is a normal appendix. Peritoneal Cavity: No ascites, collection or mesenteric inflammatory response. No free air. Lymph Nodes: Within normal limits. Bones: Within normal limits for the patient's age. Soft Tissues: Unremarkable. PELVIS: Bladder: Symmetric distention, no gross wall thickening. Reproductive Organs: The uterus is not visualized. Lymph Nodes: Within normal limits. Bones: Within normal limits for the patient's age. IMPRESSION: 1. No acute abdominal or pelvic process. 2. Constipation. RADIATION DOSE DELIVERED: 408.72mGy.cm Total DLP DATA REPOSITORY: All CT scans at this facility are submitted to the National Radiology Data Registry (NRDR) Dose Index Registry (DIR) with the [employer] (ACR). RADIATION OPTIMIZATION: All CT scans at this facility use at least one of these dose optimization techniques: automated exposure control; mA and/or kV adjustment per patient size (includes targeted exams where dose is matched to clinical indication); or iterative reconstruction.
--- NOTE | 2025-02-23 09:56 | DI.CT_ITS ---
Exam(s) CT CHEST WO EXAM: CT CHEST WO CLINICAL HISTORY: PULMONARY NODULES R91.8 ABNL FINDINGS. TECHNIQUE: Imaging protocol: Axial computed tomography images were obtained and coronal and sagittal reformatted images were created and reviewed. Lung Computer Aided Detection (CAD) was utilized. COMPARISON: CT CT CHEST WO from 11/25/2022 FINDINGS: Tracheobronchial tree: Patent where visualized. No bronchiectasis is present. Pulmonary parenchyma: No consolidation or dominant measurable mass. There is a stable peripheral left lower lobe pulmonary nodule and a peripheral right upper lobe pulmonary nodule. There is a calcified granuloma in the left lower lobe. No new pulmonary nodules are present. Mediastinum and Faith: No dominant adenopathy or fluid collection. The esophagus is unremarkable. Thyroid gland: Unremarkable. Pleura: No effusion or pneumothorax. Heart: The heart is not dilated. Mild coronary artery calcification is present. No pericardial effusion. Aorta: Thoracic aorta non-dilated. Atherosclerotic calcification is present. Upper abdomen: Unremarkable. Lymph nodes: Within normal limits. Soft tissues: Unremarkable. Bones:Within normal limits for the patient's age. IMPRESSION: 1. Stable pulmonary nodules. 2. No new pulmonary nodules. 3. No acute pulmonary process. RADIATION DOSE DELIVERED: 167.94mGy.cm Total DLP 167.94mGy.cm Total DLP DATA REPOSITORY: All CT scans at this facility are submitted to the National Radiology Data Registry (NRDR) Dose Index Registry (DIR) with the [employer] (ACR). RADIATION OPTIMIZATION: All CT scans at this facility use at least one of these dose optimization techniques: automated exposure control; mA and/or kV adjustment per patient size (includes targeted exams where dose is matched to clinical indication); or iterative reconstruction.
== END 2025-02-23 02:10 ==
LOC: DI 01:50
PROVIDERS: PCP Family Medicine; Visit Provider Family Medicine
DX: R91.8 Other nonspecific abnormal finding of lung field (principal); R10.32 Left lower quadrant pain; K59.00 Constipation, unspecified
CPT/HCPCS: 71250; 74177

== ENCOUNTER 2025-07-20 10:05 | Outpatient (REF) | payer MEDICARE, SELFPAY ==
[2025-07-20 15:36] LABS: ALT 18 U/L (10-49); AST 21 U/L (<34); Albumin 4.4 g/dL (3.2-5.0); Alkaline Phosphatase 116 U/L (46-116); Anion Gap 8.2 mmol/L (3-11); BUN 17 mg/dL (9-23); Bilirubin, Total 0.7 mg/dL (0.2-1.2); CO2 28.8 mmol/L (20.0-31.0); Calcium 9.8 mg/dL (8.3-10.6); Chloride 108 mmol/L (98-107); Cholesterol 234 mg/dL (<200); Glucose 84 mg/dL (74-106); HDL Cholesterol 70 mg/dL (>or=50); Potassium 4.2 mmol/L (3.5-5.1); Sodium 145 mmol/L (136-145); Total Protein 7.0 g/dL (5.7-8.2)
== END 2025-07-20 10:06 | disposition home or self-care (01) ==
LOC: NCHCN 10:05
PROVIDERS: PCP Family Medicine; Visit Provider Family Medicine
DX: E78.5 Hyperlipidemia, unspecified (principal); Z00.00 Encounter for general adult medical examination without abnormal findings
CPT/HCPCS: 80053; 80061

== ENCOUNTER 2025-07-25 13:02 | Outpatient (REF) | payer MEDICARE, SELFPAY ==
[2025-07-25 15:19] LABS: Abs Immature Grans 0.01 10^3/uL (0.0-0.06); HCT 40.5 % (36.0-46.0); HGB 13.8 g/dL (11.2-15.7); Immature Grans % 0.2 %; MCH 29.4 pg (27.0-33.0); MCHC 34.1 % (32.0-36.0); MCV 86 fL (80-95); MPV 9.8 fL (8.0-11.0); Platelet Count 284 10^3/uL (130-400); RBC 4.69 10^6/uL (3.93-5.22); RDW 12.5 % (11.7-14.6); RDW-SD 39.0 fL; WBC 5.59 10^3/uL (4.4-10.8)
[2025-07-25 15:37] LABS: TSH (W/Ref FT4) 1.31 uIU/mL (0.55-4.78)
[2025-07-25 15:38] LABS: Vitamin B12 549 pg/mL (211-911)
[2025-07-25 15:49] LABS: Folate > 24.0 ng/mL (>5.38)
[2025-07-25 22:40] LABS: CRP, High Sensitivity 0.76 mg/L (See Note)
[2025-07-25 22:53] LABS: T3,Free 3.5 pg/mL (2.8-5.3)
[2025-07-29 14:11] LABS: Apolipoprotein A1, S 177 mg/dL (>=140); Apolipoprotein B, S 103 mg/dL (See Comment); Apolipoprotein B/A 1 ratio 0.6 (See Comment)
== END 2025-07-25 13:03 | disposition home or self-care (01) ==
LOC: NCHCN 13:02
PROVIDERS: PCP Family Medicine; Visit Provider Family Medicine
DX: R53.82 Chronic fatigue, unspecified (principal); I25.10 Atherosclerotic heart disease of native coronary artery without angina pectoris
CPT/HCPCS: 82172; 86141; 82607; 82746; 84439; 84443; 84481; 85025